=== PATIENT | female | born 1955 | race Caucasian/White ===

== ENCOUNTER → 2018-03-21 15:11 | Outpatient (CLI) | payer OTHER, SELFPAY ==
[2018-03-21 18:45] LABS: Add Manual Diff / Slide Review NO; Basophils Percent Auto 0.5 % (0-2); Eosinophils Percent Auto 1.9 % (2-4); Hemoglobin 12.6 g/dL (12.0-16.0); Lymphocytes Percent Auto 23.6 % (25-40); Mean Corpuscular HGB Conc 33.3 % (30-36); Mean Corpuscular Hemoglobin 29.3 PG (26-34); Mean Corpuscular Volume 88.1 fL (80-100); Monocytes Percent Auto 5.2 % (3-14); Neutrophils Absolute Auto 4300 /uL (3000-5900); Neutrophils Percent Auto 68.8 % (50-75); Platelet Count 345 X10^3/uL (150-400); Red Blood Cell Count 4.32 X10^6/uL (4.0-5.2); Red Cell Distribution Width 13.8 % (11.6-14.8); White Blood Cell Count 6.2 X10^3/uL (4.5-11.0)
[2018-03-21 19:11] LABS: Alanine Aminotransferase 20 IU/L (9-52); Albumin 4.3 g/dL (3.5-5.0); Albumin Globulin Ratio 1.7 (1.0-2.8); Alkaline Phosphatase 59 U/L (38-126); Aspartate Aminotransferase 19 IU/L (14-36); Bilirubin Total 0.3 mg/dL (0.2-1.3); Blood Urea Nitrogen 27 mg/dL (7-17); Calcium 9.5 mg/dL (8.4-10.2); Carbon Dioxide 28 mmol/L (22-32); Chloride 101 mmol/L (98-107); Estimated Glomerular Filt Rate > 60.0 mL/min (>60); Globulin 2.5 g/dL (1.7-4.1); Glucose 98 mg/dL (80-110); HEMOLYSIS < 15 (0-50); Potassium 4.1 mmol/L (3.4-5.1); Sodium 140 mmol/L (137-145); Total Protein 6.8 g/dL (6.3-8.2)
[2018-03-21 19:42] LABS: Thyroid Stimulating Hormone 4.15 uIU/mL (0.47-4.68)
[2018-03-22 10:53] LABS: Bacteria Urine None Seen; RBC Urine None Seen (0-5/HPF); WBC Urine None Seen (0-5/HPF)
[2018-03-22 11:09] LABS: Appearance Urine UA CLEAR; Bilirubin Urine UA NEGATIVE (NEGATIVE); Color Urine UA YELLOW; Glucose Urine UA NEGATIVE (Normal); Ketones Urine UA NEGATIVE (NEGATIVE); Leukocyte Esterase Urine UA NEGATIVE (NEGATIVE); Nitrite Urine UA NEGATIVE (Negative); Occult Blood Urine UA TRACE-INTACT (Negative); Protein Urine UA NEGATIVE (Negative); Urobilinogen Urine UA 0.2 E.U./dL (0.2)
[2018-03-22 11:15] LABS: Culture Indicated Urine Cult Not Indicated; Urine Comments Microscopic Normal
== END ==
PROVIDERS: Visit Provider Physician Assistant
DX: R30.0 Dysuria (principal); R53.83 Other fatigue
CPT/HCPCS: 36415; 80053; 81001; 84443; 85025

== ENCOUNTER → 2018-03-22 10:40 | Outpatient (CLI) | payer OTHER, SELFPAY | PROVIDERS: Visit Provider Physician Assistant | DX: Z53.8 Procedure and treatment not carried out for other reasons (principal) ==

== ENCOUNTER → 2018-05-17 20:39 | Outpatient (CLI) | payer OTHER, SELFPAY ==
--- NOTE | 2018-05-17 20:42 | DI.RAD.S_ITS ---
PROCEDURE: XR WRIST LT MIN 3V INDICATIONS: pain in wrist TECHNIQUE: 4 views of the wrist were acquired. COMPARISON: None. FINDINGS: Bones: No fractures or dislocations. No suspicious bony lesions. Minimal first CMC degenerative narrowing. Scaphoid view: No visualized fracture. Soft tissues: No suspicious soft tissue calcifications. IMPRESSION: Minimal first CMC degenerative narrowing.No visualized acute fracture or dislocation. However, if clinical concern and/or pain persist, short interval imaging followup in 7-10 days is recommended, as occult injury cannot be definitively excluded. Dictated by: Earlene Rizo M.D. on 05/17/2018 at 20:59 Approved by: Earlene Rizo M.D. on 05/17/2018 at 21:00
== END ==
PROVIDERS: Visit Provider Physician Assistant
DX: M25.532 Pain in left wrist (principal)
CPT/HCPCS: 73110

== ENCOUNTER 2019-03-16 20:24 | Emergency (ER) | payer MEDICARE, SELFPAY ==
[2019-03-16 20:43] VITALS: BP 148/75; PULSE 83; RESP 20; TEMP 36.2; O2SAT 96; BMI 34.5
--- NOTE | 2019-03-16 20:49 | DI.US.S_ITS ---
PROCEDURE: US PERIPH VENOUS LOW EXTREM RT INDICATIONS: recent travel, new areas of ecchymosis, pain in leg. TECHNIQUE: Real-time imaging, as well as color and pulse Doppler interrogation, were performed of the lower extremity deep veins from the inguinal ligament to the popliteal fossa. COMPARISON: None. FINDINGS: The common femoral, femoral and popliteal veins are normally compressible, and free of intraluminal thrombus. Color and pulse Doppler demonstrate normal phasic intraluminal flow. There is normal augmentation response to distal compression maneuver. IMPRESSION: Negative right lower extremity duplex ultrasound for DVT. Dictated by: Myke Alexander M.D. on 03/16/2019 at 21:36 Approved by: Myke Alexander M.D. on 03/16/2019 at 21:37
[2019-03-16 22:49] LABS: Add Manual Diff / Slide Review NO; Basophils Absolute Auto 0 /uL (0-100); Basophils Percent Auto 0.7 % (0-2); Eosinophils Absolute Auto 100 /uL (0-450); Hematocrit 34.2 % (36-46); Hemoglobin 11.5 g/dL (12.0-16.0); Lymphocytes Absolute Auto 1400 /uL (1100-4500); Lymphocytes Percent Auto 28.3 % (25-40); Mean Corpuscular HGB Conc 33.6 % (30-36); Mean Corpuscular Hemoglobin 29.6 PG (26-34); Mean Corpuscular Volume 88.1 fL (80-100); Monocytes Absolute Auto 400 /uL (0-900); Neutrophils Absolute Auto 3000 /uL (1500-7000); Platelet Count 256 X10^3/uL (150-400); Red Blood Cell Count 3.89 X10^6/uL (4.0-5.2); Red Cell Distribution Width 14.4 % (11.6-14.8)
[2019-03-16 22:51] VITALS: BP 131/66; PULSE 66; RESP 18; O2SAT 97
[2019-03-16 22:52] LABS: Prothrombin Time 11.6 SECONDS (10.1-12.7)
[2019-03-16 22:55] LABS: PTT Partial Thromboplastin Tim 34 SECONDS (26.4-36.2)
--- NOTE | 2019-03-16 22:55 | ED.EXTPRO ---
HPI - Extremity Problem General Chief complaint: Extremity Problem,Nontraumatic Stated complaint: DVT Rule out of rt leg Time Seen by Provider: 03/16/19 20:43 Source: patient Mode of arrival: Family Vehicle Limitations: no limitations History of Present Illness HPI Narrative: 63-year-old female nonsmoker with history of hypothyroid presents at the request of her primary care provider for evaluation of unexplained bruising to her right anterior thigh. She had apparently taken a picture and shown to her doctor answers dark purple bruising on her right anterior thigh and she denies any obvious injury. She has no ongoing pain nor any redness or swelling. She does not take any blood thinners. She is otherwise well and denies any bleeding gums, blood in her urine or stool. She is not dizzy nor lightheaded but does state she has been fatigued for many months. She denies any medication or dietary change MD Complaint: other Onset (ago): day(s) Location: right Related Data Home Medications Medication Instructions Recorded Confirmed bupropion HCl 150 mg 24 hr tablet, 150 mg PO QAM 03/20/18 03/20/18 extended release diclofenac sodium 75 mg 75 mg PO BID 03/20/18 03/20/18 tablet,delayed release estradiol 1 mg tablet 1 mg PO DAILY 03/20/18 03/20/18 levothyroxine 125 mcg capsule 125 mcg PO DAILY 03/20/18 03/20/18 venlafaxine 75 mg capsule,extended 75 mg PO DAILY 03/20/18 03/20/18 release 24 hr Allergies Allergy/AdvReac Type Severity Reaction Status Date / Time Penicillins Allergy Verified 03/16/19 20:48 Sulfa (Sulfonamide Allergy Verified 03/16/19 20:48 Antibiotics) Review of Systems Constitutional Constitutional: Denies chills, Denies fatigue, Denies fever(s), Denies frequent falls, Denies lethargy and Denies weakness Eyes Eyes: Denies change in vision, Denies eye discharge, Denies irritation and Denies loss of vision ENT Ears, Nose, Mouth, and Throat: Denies change in voice, Denies dizziness, Denies neck pain, Denies sore throat and Denies throat swelling Cardiovascular Cardiovascular: Denies chest pain, Denies irregular heart rhythm, Denies lightheadedness, Denies palpitations, Denies dyspnea, Denies dyspnea on exertion and Denies orthopnea Respiratory Respiratory: Denies cough, Denies dyspnea, Denies dyspnea on exertion and Denies wheezing Gastrointestinal Gastrointestinal: Denies abdominal pain, Denies change in bowel habits, Denies diarrhea, Denies nausea and Denies vomiting Genitourinary Genitourinary: Denies hematuria, Denies flank pain, Denies urinary incontinence and Denies urinary urgency Musculoskeletal Musculoskeletal: Denies back pain, Denies muscle weakness, Denies neck pain, Denies numbness and Denies tingling Integumentary/Breasts Skin/Breast: Denies pruritus, Denies erythema, Denies rash, Reports unusual bruising and Denies wounds Neurologic Neurologic: Denies behavioral changes, Denies confusion, Denies dizziness, Denies frequent falls, Denies loss of vision, Denies numbness, Denies tingling and Denies weakness Psychiatric Psychiatric: Denies anxiety, Denies behavioral changes, Denies confusion, Denies depression, Denies homicidal ideation and Denies suicidal ideation Endocrine Endocrine: Denies fatigue, Denies flushing and Denies palpitations Hematologic/Lymphatic Hematologic/Lymphatic: Denies easy bruising Allergic/Immunologic Allergic/Immunologic: Denies urticaria, Denies throat swelling and Denies wheezing Patient History Social History Smoking Status: Never smoker alcohol intake frequency: 0-2 drinks per day Substance Use Type: does not use Exam Narrative Exam Narrative: GENERAL: [63] year old patient appears stated age. Well-nourished, well-developed patient, in mild distress. HEAD: Atraumatic. Normocephalic. EYES: Pupils equal round and reactive. Extraocular motions intact. No scleral icterus. No injection or drainage. ENT: Nose without bleeding, purulent drainage. Throat without erythema, tonsillar hypertrophy or exudate. Airway patent. NECK: Trachea midline. Non tender CARDIOVASCULAR: Regular rate and rhythm without murmurs, gallops, or rubs. RESPIRATORY: Clear to auscultation. Breath sounds equal bilaterally. No wheezes, rales, or rhonchi. GASTROINTESTINAL: Abdomen soft, non-tender, nondistended. EXTREMITIES: Right anterior thigh with dark purple ecchymosis without tenderness, induration or surrounding erythema or warmth. No edema or joint tenderness. BACK: Nontender without deformity or crepitance. No flank tenderness. NEURO: AOx3. SKIN: No rash or erythema of visible areas Initial Vital Signs Initial Vital Signs: Vital Signs Temperature 97.1 F L 03/16/19 20:43 Pulse Rate 83 03/16/19 20:43 Respiratory Rate 20 03/16/19 20:43 Blood Pressure 148/75 H 03/16/19 20:43 Pulse Oximetry 96 03/16/19 20:43 Course Orders Ordered: ED Orders 03/16/19 22:40 Basic Metabolic Panel Stat Complete Blood Count AUTO DIFF Stat Partial Thromboplastin Time Stat Prothrombin Time INR Stat Vital Signs Vital signs: Vital Signs - 8 hr 03/16/19 22:51 Pulse Rate 66 Respiratory Rate 18 Blood Pressure [Right Arm] 131/66 Pulse Oximetry 97 MDM - Extremity (Nontraumatic) Lab Data Result diagrams: 03/16/19 22:40 03/16/19 22:40 Labs: Lab Results 03/16/19 03/16/19 03/16/19 Range/Units 22:40 22:40 22:40 WBC 5.0 (4.5-11.0) X10^3/uL RBC 3.89 L (4.0-5.2) X10^6/uL Hgb 11.5 L (12.0-16.0) g/dL Hct 34.2 L (36-46) % MCV 88.1 (80-100) fL MCH 29.6 (26-34) PG MCHC 33.6 (30-36) % RDW 14.4 (11.6-14.8) % Plt Count 256 (150-400) X10^3/uL Neut % (Auto) 60.0 (50-75) % Lymph % (Auto) 28.3 (25-40) % [place] % (Auto) 9.0 (3-14) % Eos % (Auto) 2.0 (2-4) % Baso % (Auto) 0.7 (0-2) % Neut # (Auto) 3000 (1285-2864) /uL Lymph # (Auto) 1400 (0069-8333) /uL [place] # (Auto) 400 (0-900) /uL Eos # (Auto) 100 (0-450) /uL Baso # (Auto) 0 (0-100) /uL PT 11.6 (10.1-12.7) SECONDS INR 1.0 (0.9-1.3) APTT (26.4-36.2) SECONDS Sodium 140 (137-145) mmol/L Potassium 3.7 (3.4-5.1) mmol/L Chloride 102 (98-107) mmol/L Carbon Dioxide 30 (22-32) mmol/L BUN 23 H (7-17) mg/dL Creatinine 0.80 (0.52-1.04) mg/dL Estimated GFR > 60.0 (>60) mL/min BUN/Creatinine Ratio 28.8 H (6-22) Glucose 113 H (80-110) mg/dL Calcium 9.1 (8.4-10.2) mg/dL 03/16/19 Range/Units 22:40 WBC (4.5-11.0) X10^3/uL RBC (4.0-5.2) X10^6/uL Hgb (12.0-16.0) g/dL Hct (36-46) % MCV (80-100) fL MCH (26-34) PG MCHC (30-36) % RDW (11.6-14.8) % Plt Count (150-400) X10^3/uL Neut % (Auto) (50-75) % Lymph % (Auto) (25-40) % [place] % (Auto) (3-14) % Eos % (Auto) (2-4) % Baso % (Auto) (0-2) % Neut # (Auto) (3259-3352) /uL Lymph # (Auto) (8403-4247) /uL [place] # (Auto) (0-900) /uL Eos # (Auto) (0-450) /uL Baso # (Auto) (0-100) /uL PT (10.1-12.7) SECONDS INR (0.9-1.3) APTT 34 (26.4-36.2) SECONDS Sodium (137-145) mmol/L Potassium (3.4-5.1) mmol/L Chloride (98-107) mmol/L Carbon Dioxide (22-32) mmol/L BUN (7-17) mg/dL Creatinine (0.52-1.04) mg/dL Estimated GFR (>60) mL/min BUN/Creatinine Ratio (6-22) Glucose (80-110) mg/dL Calcium (8.4-10.2) mg/dL MDM Narrative Medical decision making narrative: Chart Viewer Diagnostics DATE TYPE STATUS AUTHOR Hx 03/16/19 20:49 Myke Alexander 05/17/18 20:42 Earlene Rizo [place] 63, [id number] DEP ER, [facility] 160.02cm 88.451kg BMI: 34.5kg/m? Extremity Problem,Nontraumatic Search Chart No Data to Display ONSET 03/16/19 22:51 Gurpreet Blevins 63 F 1955 [place] [id number] Ultrasound Report Signed Patient: Varun Blevins#: [id number] : 1955cct:[id number] Age/Sex: 63 / FDate of Service: 03/16/19 Loc: ED Accession Number: [id number] Procedure: periph venous low extrem rt Ordering Provider: Aubrey Lopez D.O. PROCEDURE: US PERIPH VENOUS LOW EXTREM RT INDICATIONS: recent travel, new areas of ecchymosis, pain in leg. TECHNIQUE: Real-time imaging, as well as color and pulse Doppler interrogation, were performed of the lower extremity deep veins from the inguinal ligament to the popliteal fossa. COMPARISON: None. FINDINGS: The common femoral, femoral and popliteal veins are normally compressible, and free of intraluminal thrombus. Color and pulse Doppler demonstrate normal phasic intraluminal flow. There is normal augmentation response to distal compression maneuver. IMPRESSION: Negative right lower extremity duplex ultrasound for DVT. Dictated by: Myke Alexander M.D. on 03/16/2019 at 21:36 Approved by: Myke Alexander M.D. on 03/16/2019 at 21:37 63-year-old female presents at the request of her physician for evaluation of a possible DVT of her right lower extremity. She has painless ecchymosis to her right anterior thigh in the absence of any injury. She has no history of the same. Additionally she claims a he she has been fatigued for few months. Labs were drawn to be sure she is not anemic or demonstrate other abnormalities. Her exam, imaging and labs are very reassuring. She is given return precautions which she understands as evidenced by her ability to recite them back. She has had questions answered to her apparent satisfaction. Discharge Plan Departure Patient Disposition: Home Clinical Impression: Abnormal bruising Discharge Date/Time: 03/16/19 23:15 Instructions: Easy Bruising (Alternative Therapy) Activity Restrictions/Additional Instructions: *You have been diagnosed with [abnormal bruising, unremarkable labs and ultrasound] *What to do: *Take medications as directed *Follow up with your primary care provider in 2-3 days, call for an appointment. Let them know you were seen in the Emergency Department and that we ask that you be seen in follow up *Return to ER if you should have any new, worsening or concerning symptoms Prescriptions: No Action venlafaxine 75 mg capsule,extended release 24hr 75 mg PO DAILY RF: 0 estradiol 1 mg tablet 1 mg PO DAILY RF: 0 diclofenac sodium 75 mg tablet,delayed release (DR/EC) 75 mg PO BID RF: 0 bupropion HCl 150 mg tablet extended release 24 hr 150 mg PO QAM RF: 0 levothyroxine 125 mcg capsule 125 mcg PO DAILY RF: 0 Referrals: [facility] [Outside]
[2019-03-16 23:02] LABS: BUN Creatinine Ratio 28.8 (6-22); Blood Urea Nitrogen 23 mg/dL (7-17); Calcium 9.1 mg/dL (8.4-10.2); Carbon Dioxide 30 mmol/L (22-32); Chloride 102 mmol/L (98-107); Estimated Glomerular Filt Rate > 60.0 mL/min (>60); Glucose 113 mg/dL (80-110); HEMOLYSIS < 15 (0-50); Potassium 3.7 mmol/L (3.4-5.1); Sodium 140 mmol/L (137-145)
== END 2019-03-16 23:15 | disposition home or self-care (01) ==
PROVIDERS: Emergency Provider Emergency Medicine
DX: R23.8 Other skin changes (principal); S70.11XA Contusion of right thigh, initial encounter
CPT/HCPCS: 36415; 80048; 85025; 85610; 85730; 93971; 99282; 99284

== ENCOUNTER → 2020-02-02 16:36 | Outpatient (CLI) | payer MEDICARE, SELFPAY ==
[2020-02-02 18:12] LABS: Hematocrit 37.3 % (36-46); Hemoglobin 12.5 g/dL (12.0-16.0); Mean Corpuscular HGB Conc 33.6 % (30-36); Mean Corpuscular Hemoglobin 29.3 PG (26-34); Mean Corpuscular Volume 87.4 fL (80-100); Platelet Count 295 X10^3/uL (150-400); Red Blood Cell Count 4.27 X10^6/uL (4.0-5.2); Red Cell Distribution Width 13.8 % (11.6-14.8); White Blood Cell Count 5.8 X10^3/uL (4.5-11.0)
[2020-02-02 18:14] LABS: Appearance Urine UA SL CLOUDY; Bilirubin Urine UA NEGATIVE (NEGATIVE); Color Urine UA YELLOW; Glucose Urine UA NEGATIVE (Negative); Ketones Urine UA TRACE (NEGATIVE); Leukocyte Esterase Urine UA TRACE (NEGATIVE); Nitrite Urine UA NEGATIVE (Negative); Occult Blood Urine UA TRACE-LYSED (Negative); Protein Urine UA 1+ (Negative); Specific Gravity Urine UA >=1.030 (1.000-1.035); Urobilinogen Urine UA 0.2 E.U./dL (0.2)
[2020-02-02 18:21] LABS: Amorphous Sediment Urine 1+; Bacteria Urine Few (2-10); Culture Indicated Urine Specimen Cultured; Mucus Urine 2+ (Negative); RBC Urine 1-5/HPF (0-5/HPF); Squamous Epithelial Cell Urine 5-10 /HPF (0-5/HPF); WBC Urine 10-30/HPF (0-5/HPF)
[2020-02-02 18:28] LABS: Alanine Aminotransferase 26 IU/L (<35); Albumin 4.2 g/dL (3.5-5.0); Albumin Globulin Ratio 1.6 (1.0-2.8); Alkaline Phosphatase 89 U/L (38-126); Aspartate Aminotransferase 30 IU/L (14-36); BUN Creatinine Ratio 30.6 (6-22); Bilirubin Total 0.4 mg/dL (0.2-1.3); Blood Urea Nitrogen 26 mg/dL (7-17); C-Reactive Protein Quant 0.9 mg/dL (<1.0); Calcium 9.2 mg/dL (8.4-10.2); Carbon Dioxide 29 mmol/L (22-32); Chloride 101 mmol/L (98-107); Cholesterol 227 mg/dL (140-199); Estimated Glomerular Filt Rate > 60.0 mL/min (>60); Globulin 2.6 g/dL (1.7-4.1); Glucose 94 mg/dL (80-110); HDL Cholesterol 84 mg/dL (40-60); HEMOLYSIS < 15 (0-50); LDL Cholesterol Calculated 106 mg/dL (<100); Magnesium 2.3 mg/dL (1.6-2.3); Potassium 4.5 mmol/L (3.4-5.1); Sodium 137 mmol/L (137-145); Total Protein 6.8 g/dL (6.3-8.2); Triglycerides 187 mg/dL (35-150)
[2020-02-02 18:39] LABS: Erythrocyte Sedimentation Rate 14 MM/HR (0-20)
[2020-02-02 18:42] LABS: Vitamin D 25 Hydroxy (D3) 42.2 ng/mL (30.0-100.0)
[2020-02-02 18:43] LABS: Neutrophils Absolute Manual 3828 /uL (3000-5900); Total Cells Counted 100
[2020-02-02 18:45] LABS: Free T4, Direct Thyroxine 1.96 ng/dL (0.78-2.19)
[2020-02-02 18:46] LABS: RBC Morphology Norm
[2020-02-02 18:59] LABS: Thyroid Stimulating Hormone 0.021 uIU/mL (0.47-4.68)
[2020-02-03 07:39] LABS: Triiodothyronine T3 Total 65 ng/dL (71-180)
[2020-02-04 11:36] LABS: Intrinsic Factor Blocking Aby 1.1 AU/mL (0.0-1.1)
[2020-02-04 14:08] LABS: Immunoglobulin A, Serum 140 mg/dL (87-352); Immunoglobulin G,Serum 607 mg/dL (586-1602); Immunoglobulin M, Serum 50 mg/dL (26-217)
[2020-02-04 15:20] LABS: Albumin 3.8 g/dL (2.9-4.4); Alpha-1-Globulin 0.2 g/dL (0.0-0.4); Alpha-2-Globulin 0.8 g/dL (0.4-1.0); Gamma Globulin 0.6 g/dL (0.4-1.8); Globulin Total 2.4 g/dL (2.2-3.9); Protein, Total 6.2 g/dL (6.0-8.5)
== END ==
PROVIDERS: PCP Internal Medicine; Referring Provider Internal Medicine; Visit Provider Internal Medicine
DX: R25.1 Tremor, unspecified (principal); E53.8 Deficiency of other specified B group vitamins; K52.839 Microscopic colitis, unspecified
CPT/HCPCS: 36415; 80053; 80061; 81001; 82306; 82784; 83735; 84155; 84165; 84439; 84443; 84480; 85025; 85651; 86140; 86334; 86340; 87086

== ENCOUNTER → 2020-02-06 18:56 | Outpatient (ROUT) | payer MEDICARE, SELFPAY ==
[2020-02-06 20:05] LABS: Vitamin B12 373 pg/mL (239-931)
== END ==
PROVIDERS: PCP Internal Medicine; Visit Provider Internal Medicine
DX: E53.8 Deficiency of other specified B group vitamins (principal)
CPT/HCPCS: 82607

== ENCOUNTER → 2020-03-23 13:16 | Outpatient (CLI) | payer MEDICARE, SELFPAY ==
--- NOTE | 2020-03-23 | DI.MRI.S_ITS ---
PROCEDURE: MR CERVICAL SPINE WO/W CON INDICATIONS: TREMORS, NAUSEA TECHNIQUE: Noncontrast sagittal T1 spin echo and T2 fast spin echo, sagittal STIR, foraminal oblique sagittal T2 fast spin echo, axial gradient echo or T2 fast spin echo through the cervical spine. After the administration of contrast, axial and sagittal T1 spin echo with fat saturation through the cervical spine. COMPARISON: None. FINDINGS: Image quality: Excellent. Alignment and curvature: Loss of normal cervical lordosis. Moderate kyphosis at C4-C6. Marrow: Marrow is normal in overall signal, without suspicious enhancement. Moderate reactive signal within the endplates adjacent to the C4-C5, C5-C6, and C6-C7 intervertebral discs. Spinal cord: Visualized spinal cord has normal size and signal. No cerebellar tonsillar herniation. No abnormal intramedullary enhancement. Paraspinous soft tissues: No paravertebral masses or suspicious enhancement. C2-3: Mild disc height loss and desiccation. Mild diffuse disc bulge. Mild facet and uncovertebral hypertrophy bilaterally. Mild canal stenosis. Moderate bilateral foraminal stenosis. C3-4: Congenital canal stenosis. Mild disc height loss and desiccation. Mild diffuse disc bulge. Mild facet and uncovertebral hypertrophy bilaterally. Moderate to severe canal stenosis. Mild cord flattening. Moderate bilateral foraminal stenosis. C4-5: Congenital canal stenosis. Moderate disc height loss and desiccation. Moderate diffuse disc bulge with superimposed broad-based left paracentral and posterolateral protrusion. Moderate facet and uncovertebral hypertrophy bilaterally. Severe canal stenosis. Moderate cord flattening. Severe bilateral foraminal stenosis with bilateral C5 nerve root compression. C5-6: Moderate disc height loss and desiccation. Moderate diffuse disc bulge with superimposed left paracentral protrusion. Congenital canal stenosis. Mild bilateral facet and uncovertebral hypertrophy. Severe canal stenosis. Moderate cord flattening. Moderate right and severe left foraminal stenosis. Left C6 nerve root compression. C6-7: Congenital canal stenosis. Moderate disc height loss and desiccation. Mild diffuse disc bulge with superimposed right posterolateral protrusion. Mild facet and uncovertebral hypertrophy bilaterally. Moderate to severe canal stenosis. Mild cord flattening. Mild bilateral foraminal stenosis. C7-T1: Moderate disc height loss and desiccation. Mild diffuse disc bulge. Mild facet and uncovertebral hypertrophy bilaterally. Mild canal stenosis. Mild right and moderate left foraminal stenosis. IMPRESSION: 1. Diffuse congenital canal stenosis with superimposed disc and facet disease, as well as uncovertebral hypertrophy. 2. Multilevel canal stenoses, worst at C3-C4, C4-C5, C5-C6, and C6-C7, where there is cord flattening present. 3. Multilevel foraminal stenoses, worst at C4-C5 and C5-C6 where there is associated intraforaminal nerve root compression. Recommend correlation with clinical symptoms to ascertain relevance of these findings. 4. No evidence of neoplasm nor inflammation. Dictated by: Arcadio Hugo M.D. on 03/23/2020 at 14:02 Approved by: Arcadio Hugo M.D. on 03/23/2020 at 14:07
--- NOTE | 2020-03-23 | DI.MRI.S_ITS ---
PROCEDURE: MR HEAD/BRAIN WO/W CON INDICATIONS: TREMOR, NAUSEA, MIGRAINE TECHNIQUE: Noncontrast axial T1 spin echo, axial T2 fast spin echo, sagittal and axial FLAIR, coronal T2 fast spin echo, axial gradient echo, axial diffusion and ADC through the brain. After the administration of contrast, axial and coronal T1 spin echo with fat saturation through the brain. COMPARISON: None. FINDINGS: Image quality: Excellent. CSF spaces: Basal cisterns are patent. No extra-axial fluid collections. Ventricles are normal in size and shape. Brain: No midline shift. No intracranial bleeds or masses. No abnormal intracranial enhancement. There is mild cerebral volume loss for age. There is minimal age-appropriate periventricular white matter chronic small vessel ischemic change. The brainstem appears normal. Diffusion-weighted images demonstrate no acute ischemic insults. No chronic ischemic insults. Normal intravascular flow voids are present. Skull and face: Calvarial marrow is normal in signal. Orbits appear normal. Sinuses: Small amount of right mastoid fluid. Sinuses and mastoids otherwise appear clear. IMPRESSION: 1. Mild volume loss. Minimal small vessel ischemic disease. 2. No acute process. No recent infarct. 3. No intracranial mass lesion. 4. Small amount of right mastoid fluid. Dictated by: Arcadio Hugo M.D. on 03/23/2020 at 14:01 Approved by: Arcadio Hugo M.D. on 03/23/2020 at 14:02
== END ==
PROVIDERS: PCP Internal Medicine; Referring Provider Internal Medicine; Visit Provider Orthopaedic Surgery
DX: R25.1 Tremor, unspecified (principal); R11.0 Nausea; G43.909 Migraine, unspecified, not intractable, without status migrainosus
CPT/HCPCS: 70553; 72156

== ENCOUNTER → 2020-03-25 07:40 | Outpatient (CLI) | payer MEDICARE, SELFPAY ==
--- NOTE | 2020-03-25 | DI.NM.S_ITS ---
PROCEDURE: NM GASTRIC EMPTYING STUDY RADIOPHARMACEUTICAL: 1.0 mCi Tc-99m sulfur colloid in an egg sandwich. INDICATIONS: TREMOR,NAUSEA,MIGRAINE TECHNIQUE: A Tc-99m labeled sulfur colloid labeled egg sandwich or oatmeal was served to the patient. Anterior and posterior planar images of the abdomen were obtained at 0 minutes and 30 minutes, then at hourly intervals up to 4 hours. The patient was upright and ambulating during the interval. COMPARISON: None. FINDINGS: The stomach has normal size, morphology, and position. There is normal emptying of solid gastric contents from the stomach by visual inspection. No gastroesophageal reflux is visualized. The percentage of tracer retained at specific time points are as follows: Time point Percent gastric retention Normal range 30 minutes 75% 70% or more 1 hour 45% 30% to 90% 2 hours 10% 60% or less 3 hours - 30% or less 4 hours - 10% or less IMPRESSION: Normal gastric emptying study. Dictated by: Gala Mac M.D. on 03/25/2020 at 11:22 Approved by: Gala Mac M.D. on 03/25/2020 at 11:23
== END ==
PROVIDERS: PCP Internal Medicine; Referring Provider Internal Medicine; Visit Provider Internal Medicine
DX: R11.0 Nausea (principal); R25.1 Tremor, unspecified; G43.909 Migraine, unspecified, not intractable, without status migrainosus
CPT/HCPCS: 78264; A9541

== ENCOUNTER 2020-06-09 17:02 | Observation (INO) | payer MEDICARE, SELFPAY ==
[2020-06-09] VITALS (12 sets, daily range): BP systolic 117–160; BP diastolic 56–84; PULSE 61–82; RESP 17–34; TEMP 36.2–36.8; O2SAT 79–99; BMI 32.4
--- NOTE | 2020-06-09 17:18 | DI.RAD.S_ITS ---
PROCEDURE: XR CHEST 1V INDICATIONS: chest pain TECHNIQUE: One view of the chest was acquired. COMPARISON: None. FINDINGS: Surgical changes and devices: None. Lungs and pleura: Possible nodule or artifact projecting to the area of the anterior left 5th rib. Lungs are clear. No pleural effusions or pneumothorax. Mediastinum: Mediastinal contours appear normal. Heart size is normal. Bones and chest wall: No suspicious bony lesions. Overlying soft tissues appear unremarkable. IMPRESSION: 1. No acute cardiopulmonary disease. 2. Possible lung nodule versus an artifact in the left midlung around the area of the anterior left 5th rib. A nonurgent follow-up chest CT is suggested. Dictated by: Gala Mac M.D. on 06/09/2020 at 17:46 Approved by: Gala Mac M.D. on 06/09/2020 at 17:48
[2020-06-09 17:47] LABS: Add Manual Diff / Slide Review NO; Basophils Absolute Auto 100 /uL (0-100); Eosinophils Absolute Auto 100 /uL (0-450); Eosinophils Percent Auto 1.2 % (2-4); Hematocrit 38.4 % (36-46); Hemoglobin 12.6 g/dL (12.0-16.0); Lymphocytes Absolute Auto 2700 /uL (1100-4500); Lymphocytes Percent Auto 24.2 % (25-40); Mean Corpuscular HGB Conc 32.7 % (30-36); Mean Corpuscular Hemoglobin 28.8 PG (26-34); Mean Corpuscular Volume 88.1 fL (80-100); Monocytes Absolute Auto 600 /uL (0-900); Monocytes Percent Auto 5.6 % (3-14); Neutrophils Absolute Auto 7600 /uL (1500-7000); Platelet Count 625 X10^3/uL (150-400); Red Blood Cell Count 4.36 X10^6/uL (4.0-5.2); Red Cell Distribution Width 13.8 % (11.6-14.8); White Blood Cell Count 11.1 X10^3/uL (4.5-11.0)
[2020-06-09 17:49] LABS: INR 1.1 (0.9-1.3); Prothrombin Time 12.8 SECONDS (10.1-12.7)
[2020-06-09 17:52] LABS: PTT Partial Thromboplastin Tim 29 SECONDS (26.4-36.2)
[2020-06-09 17:55] LABS: Alanine Aminotransferase 20 IU/L (<35); Albumin Globulin Ratio 1.3 (1.0-2.8); Alkaline Phosphatase 177 U/L (38-126); Aspartate Aminotransferase 26 IU/L (14-36); BUN Creatinine Ratio 29.3 (6-22); Bilirubin Total 0.4 mg/dL (0.2-1.3); Blood Urea Nitrogen 24 mg/dL (7-17); Calcium 9.3 mg/dL (8.4-10.2); Carbon Dioxide 28 mmol/L (22-32); Chloride 103 mmol/L (98-107); Creatine Kinase 28 U/L (30-135); Estimated Glomerular Filt Rate > 60.0 mL/min (>60); Glucose 101 mg/dL (80-110); HEMOLYSIS 48 (0-50); Lipase 335 U/L (23-300); Potassium 4.5 mmol/L (3.4-5.1); Sodium 135 mmol/L (137-145)
[2020-06-09 18:07] LABS: Troponin I < 0.012 ng/mL (0.01-0.034)
[2020-06-09 18:21] LABS: D Dimer 2755 ng/mL (<230)
--- NOTE | 2020-06-09 18:52 | DI.CT.S_ITS ---
PROCEDURE: CT ANGIO CHEST PE PROTOCOL INDICATIONS: Dyspnea TECHNIQUE: After the administration of intravenous contrast, 2 mm thick sections acquired from the pulmonary apices to the posterior costophrenic angles. 3-dimensional maximum intensity projection (MIP) coronal and sagittal reformats were then acquired through the thorax. For radiation dose reduction, the following was used: automated exposure control, adjustment of mA and/or kV according to patient size. COMPARISON: [facility], , US PERIPH VENOUS LOW EXTREM RT, 03/16/2019, 21:19. [facility], CR, XR CHEST 1V, 06/09/2020, 17:37. FINDINGS: Image quality: Sub optimal opacification of central pulmonary arteries. Pulmonary arteries: Pulmonary arteries are suboptimally opacified. Pulmonary arteries are normal in size. Lungs and pleura: There are peripheral nodular opacities in lingula. No pleural effusions or pneumothorax. Central and peripheral airways are patent. Mediastinum: Heart size is normal, without pericardial effusion. No mediastinal or hilar adenopathy. Thoracic aorta is normal in caliber and enhancement. Esophagus is normal in caliber. Small hiatal hernia. Bones and chest wall: No suspicious bony lesions. Ribs and thoracic spine appear intact throughout. Thyroid gland is atrophic. No axillary or supraclavicular adenopathy. Abdomen: Visualized upper abdominal solid organs appear normal in the early arterial phase of enhancement. Gallbladder is surgically absent. IMPRESSION: 1. Suboptimal opacification of central pulmonary arteries. Cannot rule out acute PE. Recommend repeat examination when clinically feasible if clinical suspicion is high. 2. Peripheral nodular opacities in lingula suspicious for pneumonia superimposed on atelectasis. Recommend follow up CT to resolution. 3. Atrophic thyroid gland. Please correlate with thyroid function tests. Dictated by: Gala Mac M.D. on 06/09/2020 at 19:56 Approved by: Gala Mac M.D. on 06/09/2020 at 20:03
--- NOTE | 2020-06-09 19:00 | ED_ITS ---
HPI - Chest Pain General Chief Complaint: Chest Pain Stated Complaint: having spells of nausea, rt sided chest pain Time Seen by Provider: 06/09/20 17:26 Source: patient and family Mode of arrival: Ambulatory History of Present Illness HPI narrative: Patient here for non reproducible right-sided chest discomfort. Has had nausea. Feels like pressure. Radiates to the right neck and right face. Patient status post anterior cervical diskectomy and fusion with lumbar laminectomy and foraminectomy 3 weeks ago at [facility]. Since then has had nightly chills and shakes. No fevers. No cough cold congestion. No vomiting or diarrhea. Surgical wounds have been doing well. Has not seen her surgeon for follow-up. No prior history of heart disease. No pulmonary embolism or DVT. MD complaint: chest pain Related Data Home Medications Medication Instructions Recorded Confirmed levothyroxine 125 mcg capsule 125 mcg PO DAILY 03/20/18 06/09/20 venlafaxine 75 mg capsule,extended 75 mg PO DAILY 03/20/18 06/09/20 release 24 hr magnesium citrate 300 mg PO BID 06/09/20 06/09/20 oxycodone 5 mg PO Q2HR 06/09/20 06/09/20 Allergies Allergy/AdvReac Type Severity Reaction Status Date / Time Penicillins Allergy Verified 03/16/19 20:48 Sulfa (Sulfonamide Allergy Verified 03/16/19 20:48 Antibiotics) Review of Systems Review of Systems Narrative: GENERAL: Complains chills, denied fatigue, malaise, fever, complaint sweats. HEENT: Denies sinus pain, ear pain, sore throat RESPIRATORY: Denies dyspnea, cough CARDIOVASCULAR: Complaint chest pain, denies palpitations GASTROINTESTINAL: Denies nausea, vomiting, abdominal pain : Denies dysuria, frequency, hematuria MUSCULOSKELETAL: denies muscle or bony pain SKIN: Denies rash, skin lesions NEUROLOGIC: Denies weakness, numbness ROS Unobtainable: All systems reviewed & are unremarkable except as noted in HPI and below Patient History Social History household members: spouse Smoking Status: Never smoker Smoking Status: Never smoker alcohol intake frequency: 0-2 drinks per day Substance Use Type: does not use Exam Narrative Exam Narrative: GENERAL: in no distress, not toxic not dyspneic HEAD: Normocephalic. EYES: Pupils equal round ENT: Mucous membranes moist. NECK: Trachea midline. CARDIOVASCULAR: Regular rate and rhythm without murmurs RESPIRATORY: Clear to auscultation. Breath sounds equal bilaterally. No wheezes, rales, or rhonchi. GASTROINTESTINAL: Abdomen soft, non-tender EXTREMITIES: No gross deformities. BACK: No flank tenderness. NEURO: AOx4. SKIN: Warm and dry PSYCH: Not anxious, is cooperative Initial Vital Signs Initial Vital Signs: Vital Signs Temperature 97.2 F L 06/09/20 17:14 Pulse Rate 76 06/09/20 17:14 Respiratory Rate 28 H 06/09/20 17:14 Blood Pressure 123/84 06/09/20 17:14 Pulse Oximetry 98 06/09/20 17:14 Course Course Course Narrative: Equivocal CT scan cannot rule out PE. Reviewed with patient and family. They agree for admission. Decision to Admit Date: 06/09/20 Decision to Admit time: 20:45 Orders Ordered: ED Orders 06/09/20 17:18 XR chest 1V Stat EKG-12 Lead Stat 06/09/20 17:23 Complete Blood Count AUTO DIFF Stat Comprehensive Metabolic Panel Stat D Dimer Stat Lipase Stat Partial Thromboplastin Time Stat Prothrombin Time INR Stat Troponin & CK Cardiac Panel Stat 06/09/20 18:52 CT angio chest PE protocol Stat Acetaminophen (Acetaminophen 325 Mg Tablet) 650 mg PO Q6HR PRN PRN Reason: Fever/Mild Pain (1-3) Al Hydrox/Mg Hydrox/Simethicone (Mag Hydrox/Alum/Simeth 30 Ml Udc) 30 ml PO Q6HR PRN PRN Reason: Dyspepsia Bisacodyl (Bisacodyl 10 Mg Supp) 10 mg IN DAILY PRN PRN Reason: Constipation Calcium Carbonate (Calcium Carbonate 500 Mg Tab) 1,000 mg PO Q4HR PRN PRN Reason: Dyspepsia Docusate Sodium (Docusate 100 Mg Capsule) 100 mg PO BID [facility] Enoxaparin Sodium (Enoxaparin 80 Mg/0.8 Ml Syringe) 80 mg 1 mg/kg (80 mg) SUBCUT BID BRIE Famotidine (Famotidine 20 Mg Tablet) 20 mg PO BID BRIE Sodium Chloride (Normal Saline 0.9%) 1,000 mls @ 75 mls/hr IV CONT BRIE Last Admin: 06/09/20 21:30 Dose: 75 mls/hr Documented by: BECKY Magnesium Hydroxide (Magnesium Hydroxide 30 Ml Udc) 30 ml PO DAILY PRN PRN Reason: Constipation Naloxone HCl (Naloxone 0.4 Mg/Ml Vial) 0.2 mg IV Q2MIN PRN PRN Reason: Opiate Reversal Non-Formulary Medication (Levothyroxine) 125 mcg PO DAILY BRIE Non-Formulary Medication (Magnesium Citrate) 300 mg PO BID BRIE Ondansetron HCl (Ondansetron 4 Mg/2 Ml Inj) 4 mg IV Q8HR PRN PRN Reason: Nausea And Vomiting Oxycodone HCl (Oxycodone Ir 5 Mg Tablet) 5 mg PO Q6HR PRN PRN Reason: Pain, Moderate (4-6) Oxycodone HCl (Oxycodone Ir 10 Mg Tablet) 10 mg PO Q6HR PRN PRN Reason: Pain, Severe (7-10) Venlafaxine HCl (Venlafaxine Er 75 Mg Cap) 75 mg PO DAILY BRIE Discontinued Medications Enoxaparin Sodium (Enoxaparin 80 Mg/0.8 Ml Syringe) 80 mg 1 mg/kg (80 mg) SUBCUT NOW ONE Stop: 06/09/20 20:48 Last Admin: 06/09/20 20:53 Dose: 80 mg Documented by: MADELEINE Sodium Chloride (Normal Saline 0.9%) 500 mls @ 1,000 mls/hr IV BOLUS ONE Stop: 06/09/20 19:21 Last Infusion: 06/09/20 20:16 Dose: 0 mls/hr Documented by: Admin: 06/09/20 19:40 Dose: 1,000 mls/hr Documented by: MADELEINE Reevaluation(s) Reevaluation #1: Reviewed results with patient and . Agree for admission. Understand will need V/Q scan and further testing to rule out PE. Time: 20:45 Consultations Consultation #1: Spoke with patient's neurosurgeon dr pham, patient is surgically cleared for any stress test or a V/Q scan and as well as anticoagulation. May give Lovenox Time: 20:35 Consultation #2: Spoke with Adolfo, hospitalist, will admit, start Lovenox Time: 20:46 Vital Signs Vital signs: Vital Signs - 8 hr 06/09/20 17:14 06/09/20 18:21 06/09/20 18:30 Temperature 97.2 F L Pulse Rate 76 70 67 Respiratory Rate 28 H 34 H 30 H Blood Pressure 123/84 117/56 L Pulse Oximetry 98 98 98 06/09/20 19:00 06/09/20 19:30 06/09/20 19:43 Temperature Pulse Rate 69 69 66 Respiratory Rate Blood Pressure 160/67 H Pulse Oximetry 79 L 95 06/09/20 20:00 06/09/20 20:30 Temperature Pulse Rate 61 63 Respiratory Rate 24 24 Blood Pressure 132/64 127/61 Pulse Oximetry 97 99 MDM - Chest Pain Differential Diagnosis Differential diagnosis: Likely stable angina, unstable angina pectoris, chest pain and other (Pulmonary embolism) Lab Data Attestation: I reviewed the patient's lab results. Result diagrams: 06/09/20 17:23 06/09/20 17:23 Labs: Lab Results 06/09/20 06/09/20 06/09/20 Range/Units 17:23 17:23 17:23 WBC 11.1 H (4.5-11.0) X10^3/uL RBC 4.36 (4.0-5.2) X10^6/uL Hgb 12.6 (12.0-16.0) g/dL Hct 38.4 (36-46) % MCV 88.1 (80-100) fL MCH 28.8 (26-34) PG MCHC 32.7 (30-36) % RDW 13.8 (11.6-14.8) % Plt Count 625 H (150-400) X10^3/uL Neut % (Auto) 68.0 (50-75) % Lymph % (Auto) 24.2 L (25-40) % Berks % (Auto) 5.6 (3-14) % Eos % (Auto) 1.2 L (2-4) % Baso % (Auto) 1.0 (0-2) % Neut # (Auto) 7600 H (7471-1877) /uL Lymph # (Auto) 2700 (3124-2155) /uL Berks # (Auto) 600 (0-900) /uL Eos # (Auto) 100 (0-450) /uL Baso # (Auto) 100 (0-100) /uL PT 12.8 H (10.1-12.7) SECONDS INR 1.1 (0.9-1.3) APTT 29 (26.4-36.2) SECONDS D-Dimer (<230) ng/mL Sodium 135 L (137-145) mmol/L Potassium 4.5 (3.4-5.1) mmol/L Chloride 103 (98-107) mmol/L Carbon Dioxide 28 (22-32) mmol/L BUN 24 H (7-17) mg/dL Creatinine 0.82 (0.52-1.04) mg/dL Estimated GFR > 60.0 (>60) mL/min BUN/Creatinine Ratio 29.3 H (6-22) Glucose 101 (80-110) mg/dL Calcium 9.3 (8.4-10.2) mg/dL Total Bilirubin 0.4 (0.2-1.3) mg/dL AST 26 (14-36) IU/L ALT 20 (<35) IU/L Alkaline Phosphatase 177 H (38-126) U/L Total Creatine Kinase 28 L (30-135) U/L CK-MB (CK-2) TNP CK-MB (CK-2) Rel Index TNP Troponin I < 0.012 (0.01-0.034) ng/mL Total Protein 7.0 (6.3-8.2) g/dL Albumin 4.0 (3.5-5.0) g/dL Globulin 3.0 (1.7-4.1) g/dL Albumin/Globulin Ratio 1.3 (1.0-2.8) Lipase 335 H (23-300) U/L 06/09/20 Range/Units 17:23 WBC (4.5-11.0) X10^3/uL RBC (4.0-5.2) X10^6/uL Hgb (12.0-16.0) g/dL Hct (36-46) % MCV (80-100) fL MCH (26-34) PG MCHC (30-36) % RDW (11.6-14.8) % Plt Count (150-400) X10^3/uL Neut % (Auto) (50-75) % Lymph % (Auto) (25-40) % Berks % (Auto) (3-14) % Eos % (Auto) (2-4) % Baso % (Auto) (0-2) % Neut # (Auto) (0056-9496) /uL Lymph # (Auto) (6968-6178) /uL Berks # (Auto) (0-900) /uL Eos # (Auto) (0-450) /uL Baso # (Auto) (0-100) /uL PT (10.1-12.7) SECONDS INR (0.9-1.3) APTT (26.4-36.2) SECONDS D-Dimer 2755 H (<230) ng/mL Sodium (137-145) mmol/L Potassium (3.4-5.1) mmol/L Chloride (98-107) mmol/L Carbon Dioxide (22-32) mmol/L BUN (7-17) mg/dL Creatinine (0.52-1.04) mg/dL Estimated GFR (>60) mL/min BUN/Creatinine Ratio (6-22) Glucose (80-110) mg/dL Calcium (8.4-10.2) mg/dL Total Bilirubin (0.2-1.3) mg/dL AST (14-36) IU/L ALT (<35) IU/L Alkaline Phosphatase (38-126) U/L Total Creatine Kinase (30-135) U/L CK-MB (CK-2) CK-MB (CK-2) Rel Index Troponin I (0.01-0.034) ng/mL Total Protein (6.3-8.2) g/dL Albumin (3.5-5.0) g/dL Globulin (1.7-4.1) g/dL Albumin/Globulin Ratio (1.0-2.8) Lipase (23-300) U/L Imaging Data Chest x-ray: Radiologist's Impression: [address] [id number] ReportSigned Patient: Varun Blevins#: [id number]: 3Acct:[id number]/Sex: 65 / FDate of Service: 06/09/20Loc: EDAccession Number: [id number] Procedure: XR chest 1V Ordering Provider: Elizabet Jose D.O. PROCEDURE: XR CHEST 1V INDICATIONS: chest pain TECHNIQUE: One view of the chest was acquired. COMPARISON: None. FINDINGS: Surgical changes and devices: None. Lungs and pleura: Possible nodule or artifact projecting to the area of the anterior left 5th rib. Lungs are clear. No pleural effusions or pneumothorax. Mediastinum: Mediastinal contours appear normal. Heart size is normal. Bones and chest wall: No suspicious bony lesions. Overlying soft tissues appear unremarkable. IMPRESSION: 1. No acute cardiopulmonary disease. 2. Possible lung nodule versus an artifact in the left midlung around the area of the anterior left 5th rib. A nonurgent follow-up chest CT is suggested. Dictated by: Gala Mac M.D. on 06/09/2020 at 17:46 Approved by: Gala Mac M.D. on 06/09/2020 at 17:48 CT scan - chest: Radiologist's Impression: [address] [id number] Scan ReportSigned Patient: Varun Blevins#: [id number]: 1955cct:[id number]/Sex: 65 / FDate of Service: 06/09/20Loc: EDAccession Number: [id number] Procedure: CT angio chest PE protocol Ordering Provider: Herrera Stewart MD PROCEDURE: CT ANGIO CHEST PE PROTOCOL INDICATIONS: Dyspnea TECHNIQUE: After the administration of intravenous contrast, 2 mm thick sections acquired from the pulmonary apices to the posterior costophrenic angles. 3-dimensional maximum intensity projection (MIP) coronal and sagittal reformats were then acquired through the thorax. For radiation dose reduction, the following was used: automated exposure control, adjustment of mA and/or kV according to patient size. COMPARISON: [facility], US, US PERIPH VENOUS LOW EXTREM RT, 03/16/2019, 21:19. [facility], CR, XR CHEST 1V, 06/09/2020, 17:37. FINDINGS: Image quality: Sub optimal opacification of central pulmonary arteries. Pulmonary arteries: Pulmonary arteries are suboptimally opacified. Pulmonary arteries are normal in size. Lungs and pleura: There are peripheral nodular opacities in lingula. No pleural effusions or pneumothorax. Central and peripheral airways are patent. Mediastinum: Heart size is normal, without pericardial effusion. No mediastinal or hilar adenopathy. Thoracic aorta is normal in caliber and enhancement. Esophagus is normal in caliber. Small hiatal hernia. Bones and chest wall: No suspicious bony lesions. Ribs and thoracic spine appear intact throughout. Thyroid gland is atrophic. No axillary or supraclavicular adenopathy. Abdomen: Visualized upper abdominal solid organs appear normal in the early arterial phase of enhancement. Gallbladder is surgically absent. IMPRESSION: 1. Suboptimal opacification of central pulmonary arteries. Cannot rule out acute PE. Recommend repeat examination when clinically feasible if clinical suspicion is high. 2. Peripheral nodular opacities in lingula suspicious for pneumonia superimposed on atelectasis. Recommend follow up CT to resolution. 3. Atrophic thyroid gland. Please correlate with thyroid function tests. Dictated by: Gala Mac M.D. on 06/09/2020 at 19:56 Approved by: Gala Mac M.D. on 06/09/2020 at 20:03 ECG Data Attestation: I personally reviewed and interpreted this ECG as follows: Interpretation: Normal sinus rhythm rate [address] elevation or depression. Normal EKG MDM Narrative Medical decision making narrative: Appropriate for admission. Reviewed with neurosurgeon for clearance surgically. Cannot rule out PE. Will need V/Q scan in the morning Discharge Plan Departure Patient Disposition: Admitted as Observation Clinical Impression: Chest pain Qualifiers: Chest pain type: unspecified Qualified Code(s): R07.9 - Chest pain, unspecified Admit Date/Time: 06/09/20 20:45 Admit Provider: Romain Estrada
[2020-06-09] MEDS: SODIUM CHLORIDE 0.9% 500 ML 1000 ML IV (19:40)
[2020-06-09] MEDS: ENOXAPARIN 80 MG/0.8 ML SYRINGE SUBCUT (20:53)
[2020-06-09] MEDS: SODIUM CHLORIDE 0.9% 1,000 ML 75 ML IV (21:30)
--- NOTE | 2020-06-09 21:36 | DI.NM.S_ITS ---
PROCEDURE: NM PUL VENT AND PERFUSION RADIOPHARMACEUTICAL: Less than 4 mCi Tc-99m DTPA aerosol by inhalation and 9.8 mCi Tc-99m MAA intravenously. INDICATIONS: CT equivocal for PE TECHNIQUE: Ventilation images were obtained first with Tc-99m DTPA aerosol. Subsequently, perfusion images were acquired after intravenous injection of Tc-99m MAA. Anterior, posterior, CORDOVA, STEFFANIE, RPO, LPO, left and right lateral views were obtained. COMPARISON: [facility], CT, CT ANGIO CHEST PE PROTOCOL, 06/09/2020, 18:54. [facility], CR, XR CHEST 1V, 06/09/2020, 17:37. FINDINGS: The comparison chest x-ray dated 06/09/2020 demonstrates no pulmonary infiltrates or pleural effusions. Technetium 99 M DTPA aerosol images demonstrate mild central airway deposition of aerosol, otherwise physiological activity bilaterally. Perfusion images demonstrate no pleural based, segmental or subsegmental ventilation perfusion mismatches. Swallowed activity is noted in the esophagus and stomach. IMPRESSION: 1. Very low probability for pulmonary embolism. Dictated by: Gala Mac M.D. on 06/10/2020 at 14:38 Approved by: Gala Mac M.D. on 06/10/2020 at 14:41
[2020-06-09 22:32] LABS: COVID19 -Nasal RAPID Negative (Negative)
[2020-06-09 23:58] LABS: Procalcitonin < 0.05 ng/mL (<0.5)
[2020-06-10] MEDS: FAMOTIDINE 20 MG TABLET PO ×3 (00:18→19:39)
--- NOTE | 2020-06-10 01:25 | PM.HP.1 ---
History of Present Illness History of Present Illness Date Patient Seen: 06/09/20 Time Patient Seen: 22:15 Chief complaint: having spells of nausea, rt sided chest pain Narrative: Ms.Kerrylea Blevins is a 65-year-old female with a past medical history significant for dyskinesia, hypothyroidism, and osteoarthritis who presents to the ER sent by her primary care physician for complaints lightheadedness, weakness, night sweats and nausea. Upon arrival to the ER the patient's chief complaint is reported as right-sided chest pain that radiates into the neck and the face. She has 19 days postoperative anterior cervical diskectomy and fusion with lumbar foraminotomy completed by Dr. Lopez at [facility]. Since her surgery she reports chills and shakes and has a long history parkinsonian like tremors and dyskinesias that have been worse since surgery. The patient reports that she has not taken a pain pill in over a week and states that she has much greater motion in her neck and her back then she had preoperative. The patient describes upper chest pressure as a fullness with exertional dyspnea that is progressive with activity and relieved with rest and took Tylenol. She reports having longstanding history episodic diaphoresis pre dating her surgery for years. Since surgery the patient has had decreased mobility due to the a for mentioned chest pressure and dyspnea and no prior history of DVT or pulmonary emboli. She denies complaints of fevers, headaches or dizziness, she has had chest pain as noted above denies palpitations. She denies chest congestion or cough and has had no wheezing. She denies complaints of abdominal pain, no nausea vomiting and no diarrhea or constipation. She reports no urinary symptoms. Upon arrival the ER the patient is afebrile with temperature 97.2?, heart rate of 76, blood pressure 123/84, respirations of 28 saturating 98% on room air. Twelve lead EKG reveals sinus rhythm at a rate of 66 without ectopy or block, no ST or T-wave changes no evidence of infarct. Chest x-ray finds possible lung nodule versus artifact overlying the anterior 5th rib but no acute cardiopulmonary processes. A CT angio of the chest for PE finds some optimal opacification of the central pulmonary arteries, cannot rule out PE, peripheral nodular opacities suspicious for pneumonia. On laboratory analysis the patient has white count of 11.1 with elevated neutrophils at 7600. She has a hemoglobin of 12.6, hematocrit of 38.4 platelets 625. PT is 12.8 an INR 1.1 and PTT of 29. Her electrolytes are within normal limits and she has a BUN 24 and a creatinine of 0.82. Her nonfasting glucose is 101. Her liver functions within normal range she has lipase of 335. Her total CK is 28 and troponin is negative at less than 0.012. The patient is admitted to the hospitalist service for chest pain rule out pulmonary embolism. Patient History Medical History (Updated 06/10/20 @ 01:46 by ANI Knapp) Depression Hypothyroidism Osteoarthritis Surgical History (Updated 06/10/20 @ 01:46 by ANI Knapp) History of cervical spinal surgery History of cholecystectomy History of hysterectomy History of lumbar surgery Family & Social History Social History: household members spouse Prior Living Arrangements House Safety & Behavioral: Feels Safe in Current Yes Environment Been Physically Hurt or No Threatened By a Person Suicidal Ideation Description None Suicide Plan Description No Plan Tobacco & Substance use: Smoking Status Never smoker alcohol intake frequency holiday/special occasion Substance Use Type does not use Meds Home Medications and Allergies Home Medications Medication Instructions Recorded Confirmed Type levothyroxine 125 mcg capsule 125 mcg PO DAILY 03/20/18 06/09/20 History venlafaxine 75 mg capsule,extended 75 mg PO DAILY 03/20/18 06/09/20 History release 24 hr magnesium citrate 300 mg PO BID 06/09/20 06/09/20 History oxycodone 5 mg PO Q2HR 06/09/20 06/09/20 History Allergies Allergy/AdvReac Type Severity Reaction Status Date / Time Penicillins Allergy Verified 03/16/19 20:48 Sulfa (Sulfonamide Allergy Verified 03/16/19 20:48 Antibiotics) Review of Systems Review of Systems ROS: Yes All systems reviewed with the patient and are negative except as otherwise documented Exam Vital Signs (past 8 hours): - 06/09/20 18:21 06/09/20 18:30 06/09/20 19:00 Temperature Pulse Rate 70 67 69 Respiratory Rate 34 H 30 H Blood Pressure 117/56 L Pulse Oximetry 98 98 06/09/20 19:30 06/09/20 19:43 06/09/20 20:00 Temperature Pulse Rate 69 66 61 Respiratory Rate 24 Blood Pressure 160/67 H 132/64 Pulse Oximetry 79 L 95 97 06/09/20 20:30 06/09/20 21:00 06/09/20 21:01 Temperature Pulse Rate 63 67 67 Respiratory Rate 24 21 Blood Pressure 127/61 142/71 H Pulse Oximetry 99 99 99 06/09/20 21:30 06/09/20 23:58 Temperature 98.3 F 97.7 F Pulse Rate 74 82 Respiratory Rate 17 20 Blood Pressure 156/68 H 149/68 H Pulse Oximetry 96 96 Oxygen Delivery Method Room Air Oxygen Flow Rate 0 Narrative Exam Narrative: GENERAL APPEARANCE: well developed, overweight female sitting up in bed alert and responsive with dyskinesia but in no acute distress. HEENT: Normocephalic, PERRLA, conjunctiva clear, EOMs intact without nystagmus, mucous membranes are moist and pink without lesions or exudate. NECK/THYROID: Healing wound without signs of infection right anterior neck, nontender to palpation, limited ROM, no JVD,no thyromegaly, trachea midline. LYMPH NODES: no cervical or supraclavicular lymphadenopathy. SKIN: [place], warm and dry, no visible lesions, rashes, ulcerations or petechiae. HEART: regular rate and rhythm, S1-S2, no murmur, no rubs or gallops, brisk capillary refill, no edema LUNGS: clear to auscultation bilaterally, no coarseness crackles or wheezing, no cough present CHEST: Symmetrical movement, no accessory muscle use, good tidal volume. ABDOMEN: Soft, no distention, no abdominal tenderness, no guarding or peritoneal signs, no organomegaly, no flank or suprapubic tenderness, active bowel tones. BACK: Lumbar spine healing midline scar, decreased lumbar lordosis, mild tenderness on palpation without muscular spasms EXTREMITIES: Spastic/dystonic movements of all extremities, BUE strength is 4/5 and symmetrical, no clubbing or cyanosis, gait not observed. NEUROLOGIC: AAO x 3, dysphonia, dystonic movements and tremors, cranial nerves II-XII grossly intact, sensation intact to light touch, hearing grossly normal to speech. PSYCH: Good eye contact, cooperative, stable behavior. Objective Labs Result Diagrams: 06/09/20 17:23 06/09/20 17:23 Labs: Laboratory Results - last 24 hr 06/09/20 06/09/20 06/09/20 17:23 17:23 17:23 WBC 11.1 H RBC 4.36 Hgb 12.6 Hct 38.4 MCV 88.1 MCH 28.8 MCHC 32.7 RDW 13.8 Plt Count 625 H Neut % (Auto) 68.0 Lymph % (Auto) 24.2 L [place] % (Auto) 5.6 Eos % (Auto) 1.2 L Baso % (Auto) 1.0 Neut # (Auto) 7600 H Lymph # (Auto) 2700 [place] # (Auto) 600 Eos # (Auto) 100 Baso # (Auto) 100 PT 12.8 H INR 1.1 APTT 29 D-Dimer Sodium 135 L Potassium 4.5 Chloride 103 Carbon Dioxide 28 BUN 24 H Creatinine 0.82 Estimated GFR > 60.0 BUN/Creatinine Ratio 29.3 H Glucose 101 Calcium 9.3 Total Bilirubin 0.4 AST 26 ALT 20 Alkaline Phosphatase 177 H Total Creatine Kinase 28 L CK-MB (CK-2) TNP CK-MB (CK-2) Rel Index TNP Troponin I < 0.012 Total Protein 7.0 Albumin 4.0 Globulin 3.0 Albumin/Globulin Ratio 1.3 Lipase 335 H Procalcitonin Nasal Screen MRSA (PCR) SARS-CoV-2 (PCR) SARS-CoV-2 IgA Ab 06/09/20 06/09/20 06/09/20 17:23 21:50 21:50 WBC RBC Hgb Hct MCV MCH MCHC RDW Plt Count Neut % (Auto) Lymph % (Auto) [place] % (Auto) Eos % (Auto) Baso % (Auto) Neut # (Auto) Lymph # (Auto) [place] # (Auto) Eos # (Auto) Baso # (Auto) PT INR APTT D-Dimer 2755 H Sodium Potassium Chloride Carbon Dioxide BUN Creatinine Estimated GFR BUN/Creatinine Ratio Glucose Calcium Total Bilirubin AST ALT Alkaline Phosphatase Total Creatine Kinase CK-MB (CK-2) CK-MB (CK-2) Rel Index Troponin I Total Protein Albumin Globulin Albumin/Globulin Ratio Lipase Procalcitonin Nasal Screen MRSA (PCR) Negative for mrsa SARS-CoV-2 (PCR) SARS-CoV-2 IgA Ab Cancelled 06/09/20 06/09/20 22:00 23:20 WBC RBC Hgb Hct MCV MCH MCHC RDW Plt Count Neut % (Auto) Lymph % (Auto) [place] % (Auto) Eos % (Auto) Baso % (Auto) Neut # (Auto) Lymph # (Auto) [place] # (Auto) Eos # (Auto) Baso # (Auto) PT INR APTT D-Dimer Sodium Potassium Chloride Carbon Dioxide BUN Creatinine Estimated GFR BUN/Creatinine Ratio Glucose Calcium Total Bilirubin AST ALT Alkaline Phosphatase Total Creatine Kinase CK-MB (CK-2) CK-MB (CK-2) Rel Index Troponin I Total Protein Albumin Globulin Albumin/Globulin Ratio Lipase Procalcitonin < 0.05 Nasal Screen MRSA (PCR) SARS-CoV-2 (PCR) Negative SARS-CoV-2 IgA Ab Assessment & Plan Assessment & Plan narrative: This is a 65-year-old female patient who presents 19 days postoperative anterior surgical fusion and diskectomy as well as lumbar foraminotomy with decreased activity related to chest pressure and exertional dyspnea. 1. Chest pain, rule out pulmonary emboli, acute, present on admission, active. -right-sided chest pain with radiation into the neck with exertional dyspnea. -the patient is high risk for pulmonary embolus with decreased mobility following major surgery 19 days ago. -Wells PE score is 7.5. D-dimer is 2955, CTA PE protocol is inconclusive due to suboptimal opacification central pulmonary arteries. Cannot rule out PE per radiology read. -bilateral lower extremity ultrasound finds no DVT. -V/Q scan is ordered -ER physician spoke with patient's neurosurgeon dr Caldwell, who cleared the patient for anticoagulation. Ordered Lovenox 1 milligram/kilogram (80 mg) twice daily 1st dose given in the ER. 2. Recent cervical spinal fusion and lumbar foraminotomy, stable. -the patient has not had follow-up with her surgeon. Cervical and lumbar wounds appear clean without signs of infection redness swelling or tenderness. -will cuss physical for and occupational therapy to assess and treat -patient using cervical collar intermittently. -[facility] 3. Dyskinesia -the patient states she has had motor dysfunction for many years but has escalated over the last 5 years. 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 -the patient continues to follow at [facility] with movement disorder specialists. VTE prophylaxis: Therapeutic Lovenox 80 mg twice daily IV fluid: 75 cc/hour Diet: Heart healthy Code status: Full code, patient designates her to be her surrogate decision maker. The patient is admitted to the hospital due to the severity of her symptoms requiring further monitoring and evaluation to prevent complications or adverse events with a complex treatment plan. The patient is admitted as observation with expected length of stay to be less than 2 midnights. COVID-19 COVID-19 status: Negative Result date/Date tested (Pos, Neg/Pending): 06/09/20 Scores GCS Austin coma scale eye opening: Spontaneous Austin coma scale verbal response: Orientated Michael coma scale motor response: Obey commands Austin coma scale total score: 15 Wells' Criteria for PE Clinical signs and symptoms of DVT: No PE is #1 Dx or equally likely: Yes Heart rate > 100: No Immobilization at least 3 days or surg in previous 4 weeks: Yes History of PE or DVT: No Hemoptysis: No Malignancy w/Treatment within 6 months or palliative: No Wells' PE Score total: 4.5
[2020-06-10] MEDS: MELATONIN 3 MG TABLET 6 MG PO (02:46)
[2020-06-10] MEDS: LEVOTHYROXINE 50 MCG TABLET 125 MCG PO (06:41)
[2020-06-10 06:57] LABS: Add Manual Diff / Slide Review NO; Basophils Absolute Auto 100 /uL (0-100); Basophils Percent Auto 1.1 % (0-2); Eosinophils Absolute Auto 200 /uL (0-450); Eosinophils Percent Auto 2.8 % (2-4); Hematocrit 32.9 % (36-46); Lymphocytes Absolute Auto 2700 /uL (1100-4500); Mean Corpuscular HGB Conc 33.5 % (30-36); Mean Corpuscular Hemoglobin 29.5 PG (26-34); Mean Corpuscular Volume 87.9 fL (80-100); Monocytes Absolute Auto 500 /uL (0-900); Monocytes Percent Auto 5.6 % (3-14); Neutrophils Absolute Auto 4500 /uL (1500-7000); Neutrophils Percent Auto 56.5 % (50-75); Platelet Count 391 X10^3/uL (150-400); Red Blood Cell Count 3.74 X10^6/uL (4.0-5.2); Red Cell Distribution Width 13.8 % (11.6-14.8)
[2020-06-10 06:59] LABS: BUN Creatinine Ratio 27.3 (6-22); Blood Urea Nitrogen 24 mg/dL (7-17); Calcium 8.6 mg/dL (8.4-10.2); Carbon Dioxide 28 mmol/L (22-32); Chloride 103 mmol/L (98-107); Estimated Glomerular Filt Rate > 60.0 mL/min (>60); Glucose 124 mg/dL (80-110); HEMOLYSIS 18 (0-50); Magnesium 2.2 mg/dL (1.6-2.3); Sodium 134 mmol/L (137-145)
[2020-06-10 08:00] VITALS: BP 126/65; PULSE 73; RESP 20; TEMP 37.2; O2SAT 97
[2020-06-10] MEDS: ENOXAPARIN 80 MG/0.8 ML SYRINGE SUBCUT (08:35)
[2020-06-10] MEDS: VENLAFAXINE ER 75 MG CAP PO (08:35)
[2020-06-10] MEDS: DOCUSATE 100 MG CAPSULE PO (08:35)
[2020-06-10 09:08] VITALS: PULSE 79; RESP 16; O2SAT 98
--- NOTE | 2020-06-10 09:50 | OT.IP.EVAL ---
Past Medical History (Last Updated 06/10/20 @ 01:46 by ANI Knapp) Depression Hypothyroidism Osteoarthritis Surgical History (Last Updated 06/10/20 @ 01:46 by ANI Knapp) History of cervical spinal surgery History of cholecystectomy History of hysterectomy History of lumbar surgery Occupational Therapy Inpatient Evaluation/Re-Eval M1 PT/OT-IP Prior Functional Status Start: 06/10/20 11:54 Freq: NEEDED Status: Active Protocol: Document 06/10/20 11:54 [facility] (Rec: 06/10/20 12:19 [facility] [id number]) Medical Review Prior Functional Status Communication Independent however at times has word finding issues. Mobility and Gait Independent with no devices. Activities of Daily Living and IADL's Pt states independent with all ADL, and her assists with heavy IADl needs. Prior Functional Level (Other details) Pt is apprx 3 week out from postop anterior cervical diskectomy and fusion with lumbar foraminotomy and per pt states doctor wanting pt to wear the rigid neck collar at all times, however pt states recently got a rash on her neck from medications and that the surgeon told her to get a soft collar instead. Pt states has not gotten the soft collar yet and complaining of discomfort with the hard neck collar. Information passed to nursing. Social History Household Members spouse Living Arrangements House Number of Floors (Floors) Two Floors Number of Stairs To Enter/Railing? One 5.5 inch platform step with ability to hold to the gate/fence and then 25 ft and then another step to get into the house. Pt able to stay on the main level. Home Environment Standard Height Toilet,Walk in Shower Home Equipment Shower Seat with Backrest,Hand Held Shower,Rn Delivery M2 OT-IP Current Condition Start: 06/10/20 11:54 Freq: Status: Active Protocol: Document 06/10/20 11:54 [facility] (Rec: 06/10/20 12:19 [facility] [id number]) Occupational Therapy Current Condition Current Condition Evaluation Date 06/10/20 Treatment Diagnosis Chest pain, decreased activity tolerance Post Operative Precautions Cervical Spine Precautions Rigid Collar,No Heavy Lifting, Log Roll M3 OT- IP Subjective and Pain Start: 06/10/20 11:54 Freq: Status: Active Protocol: Document 06/10/20 11:54 [facility] (Rec: 06/10/20 12:19 [facility] [id number]) OT- Subjective Occupational Therapy Visit Type Type Initial Evaluation Visit Start Time 09:13 Visit Stop Time 09:50 Total Visit Minutes 37 Occupational Therapy Visit Comments Patient Comments Pt agreed to do OT eval. Patient/Caregiver Goals To go home. OT Pain Assessment Pain When Pain Assessed At Rest Pain Present Pain Present Pain Reported Location Neck Intensity 2 Scale Used Numeric (0 - 10) M4 OT- IP ADL's Start: 06/10/20 11:54 Freq: Status: Active Protocol: Document 06/10/20 11:54 [facility] (Rec: 06/10/20 12:19 [facility] [id number]) OT [id number] Comments OT Self-Feeding Comments Pt states did not have any issues for swallowing. OT ADL-Grooming General Evaluation Grooming Ability Independent Areas Needing Assistance Retrieving/Set-up of Grooming Items OT ADL-Oral Care General Eval Oral Care Ability Independent Comments Oral Care Comments VC to spit into a cup. OT ADL-Dressing General Eval Lower Body Dressing Ability Standby Assistance Comments OT Dressing Comments Pt able to comfortable cross her legs over to sharon/doff her socks. OT ADL-Toileting Comments OT Toileting Comments Pt not having to go. OT ADL-Bathing Comments OT Bathing Comments NOt performed. M5 OT- IP IADL's Start: 06/10/20 11:54 Freq: Status: Active Protocol: Document 06/10/20 11:54 [facility] (Rec: 06/10/20 12:19 [facility] [id number]) OT-Instrumental Activities of Daily Living Home Safety Awareness Awareness of Need for Assistance at Home Good Awareness Ability to Problem Solve Emergency Able to Problem Solve Situations Senior Quality Methods Specialist Senior Quality Methods Specialist Caregiver Provides Assist Driving Driving Caregiver Provides Assist M6 OT- IP Functional Cognition Start: 06/10/20 11:54 Freq: Status: Active Protocol: Document 06/10/20 11:54 [facility] (Rec: 06/10/20 12:19 [facility] [id number]) Cognitive Factors Limiting Selfcare Function Cognitive Ability Level of Alertness Alert Patient Orientation Name,Age,Birthday,Month,Date, Year,Day of Week,Place, Situation Attention Span Ability Capable of Focused Attention, Capable of Sustained Attention Ability to Follow Commands Able to Follow One Step Commands Safety Awareness Decreased Ability to Apply Precautions,Underestimates Need for Assistance Problem Solving Ability Needs Assist to Identify Solutions Cognitive Comments Cognitive Assessment Comments Pt needing reminder to do log rolling. Pt has word finding difficulties at times. OT- Vision and Hearing OT- Hearing Assessment OT- Hearing Assessment WFL OT- Vision Assessment Visual Acuity Glasses All The Time M7 OT- IP Mobility and Balance Start: 06/10/20 11:54 Freq: Status: Active Protocol: Document 06/10/20 11:54 [facility] (Rec: 06/10/20 12:19 [facility] [id number]) OT- Bed Mobility Assessment Rolling Type of Rolling Roll to Left Level of Assistance Standby Assistance Supine to Sit Supine to Sit Assist Standby Assistance Sit to Supine Sit to Supine Assist Standby Assistance Scooting Scooting to Edge of Bed Standby Assistance OT-Transfer Assessment Sit to and From Stand Sit to and from Stand Standby Assistance Transfers Transfer Ability Standby Assistance Technique Transfer Destination Bed Devices Transfer Assistive Devices None,Gait Belt Comments Mobility Comments SBA for bed mobility and able to walk to the sink and back with SBA. Pt states feeling tired while at the sink and had to get back to the bed. OT- Balance Assessment Sitting Balance and Reactions Static Sitting Balance Ability Normal Dynamic Sitting Balance Ability Normal Standing Balance and Reactions Static Standing Balance Ability Good M8 OT- IP Objective Assessments Start: 06/10/20 11:54 Freq: Status: Active Protocol: Document 06/10/20 11:54 [facility] (Rec: 06/10/20 12:19 [facility] [id number]) OT-Muscle Tone Assessment Muscle Tone WNL Yes M9 OT- IP Assessment and Plan Start: 06/10/20 11:54 Freq: Status: Active Protocol: Document 06/10/20 11:54 [facility] (Rec: 06/10/20 12:19 [facility] [id number]) OT Summary Assessment and Plan Potential Rehabilitation Potential Good Analytic Complexity at Evaluation Low Summary OT Impairments Functional Cognition, Functional Mobility,Dressing, Toileting,Bathing,Activity Tolerance Progress Towards Goals Slow Progress due to Medical Issues,Slow Progress due to Activity Tolerance Assessment Summary Pt low complexity and here for chest pain and possible PE or PNA. Pt's main barriers are decreased activity tolerance. Pt has a supportive that is able to assist at home . Pt about 3 week out from postop anterior cervical diskectomy and fusion with lumbar foraminotomy and per pt states doctor wanting to wear the rigid neck collar at all times, however pt states recently got a rash on her neck from medications and that the surgeon told her to get a soft collar instead. Pt states has not gotten the soft collar yet and complaining of discomfort with the rigid neck collar. Recommend pt to go home with assist when medically stable. Goals Self-Feeding Goal Independent Grooming Goal Independent Dressing Goal Independent Toileting Goal Independent Bathing Goal Independent Toilet Transfer Goal Independent Shower Transfer Goal Independent Patient/Caregiver Education Goal Demonstrate Energy Conservation and Pacing Days to Meet Goals 7 Frequency of Treatment Frequency Of Treatment Once a Day Treatment Plan OT Treatment Plan ADL Training,Functional Cognition Training,Functional Mobility,Patient/Family Education,Discharge Planning Other Treatment Recommendations and Next Shower Treatment Focus Discharge Recommendations OT Discharge Recommendations Home with Assistance Transportation Needs at Discharge Private Vehicle
[2020-06-10] MEDS: ACETAMINOPHEN 325 MG TABLET 650 MG PO (11:33)
[2020-06-10 12:00] VITALS: BP 126/74; PULSE 72; RESP 18; O2SAT 98
--- NOTE | 2020-06-10 12:22 | PT.IIE ---
Surgical History (Last Updated 06/10/20 @ 01:46 by ANI Knapp) History of cervical spinal surgery History of cholecystectomy History of hysterectomy History of lumbar surgery Medical History (Last Updated 06/10/20 @ 01:46 by ANI Knapp) Depression Hypothyroidism Osteoarthritis Physical Therapy Inpatient Evaluation/Re-Eval M1 PT/OT-IP Prior Functional Status Start: 06/10/20 11:54 Freq: NEEDED Status: Active Protocol: Document 06/10/20 11:54 [facility] (Rec: 06/10/20 12:19 [facility] [id number]) Medical Review Prior Functional Status Communication Independent however at times has word finding issues. Mobility and Gait Independent with no devices. Activities of Daily Living and IADL's Pt states independent with all ADL, and her assists with heavy IADl needs. Prior Functional Level (Other details) Pt is apprx 3 week out from postop anterior cervical diskectomy and fusion with lumbar foraminotomy and per pt states doctor wanting to wear the rigid neck collar at all times, howevr pt states recently got a rash on her neck from medicaitons and that the surgeon told her to get a soft collar instead. Pt states has not gotten the soft collar yet and complaining of discomfort with the hard neck collar. Information passed to nursing. Social History Household Members spouse Living Arrangements House Number of Floors (Floors) Two Floors Number of Stairs To Enter/Railing? One 5.5 inch platform step with ability to hold to the gate/fence and then 25 ft and then another step to get into the house. Pt able to stay on the main level. Home Environment Standard Height Toilet,Walk in Shower Home Equipment Shower Seat with Backrest,Hand Held Shower,Chemical Processing Equipment Repairer M2 PT-IP Current Condition Start: 06/10/20 11:37 Freq: NEEDED Status: Active Protocol: Document 06/10/20 13:17 (Rec: 06/10/20 13:29 [email or web address]) Physical Therapy Current Condition Current Condition Evaluation Date 06/10/20 Treatment Diagnosis chest discomfort, exertional dyspnea Onset Date few days ago Precautions Cervical Spine Precautions Soft Collar for Comfort,Rigid Collar,No Heavy Lifting,Log Roll Lumbar Precautions Log Roll,No Twisting,Limit Bending,Lifting Restriction of 10 lbs,Gait Belt above Incisional Area Weight Bearing Status Weight Bearing Status Full Weight Bearing M3 PT-IP Subjective Start: 06/10/20 11:37 Freq: NEEDED Status: Active Protocol: Document 06/10/20 13:17 [facility] (Rec: 06/10/20 13:29 [email or web address]) Subjective Physical Therapy Visit Type Type Initial Evaluation Visit Start Time 12:01 Visit Stop Time 12:22 Total Visit Minutes 21 Number of CRACKER DOUGH MIXER Visits 0 Physical Therapy Visit Comments Patient Comments Im doing pretty and i just get tired easily. Patient Goals to regain her strength and endurance Therapy Pain Assessment Pain Present Pain Present Denied Pain M4 PT-IP Mobility and Gait Start: 06/10/20 11:37 Freq: NEEDED Status: Active Protocol: Document 06/10/20 13:17 [facility] (Rec: 06/10/20 13:29 [email or web address]) PT-Bed Mobility Assessment Supine to Sit Supine to Sit Head of Bed Elevated Scooting Scooting to Edge of Bed Standby Assistance PT-Transfer Assessment Sit to and From Stand Sit to and from Stand Standby Assistance Equipment Transfer Assistive Device None Orthotic/Prosthetic Devices or Brace: No Transfers Transfer Destination Bed,Chair Transfer Technique Stand Step Pivot Transfer Ability Level of Assist Standby Assistance Comments Mobility Comments pt was in elevated bed upon PT arrival. AxOx4 and noticed pt has resting tremor trunk > UE > LE. GIO at 128/69 HR 80. Denies any discomfort. She was able to recall 2/3 post precautions. Pt then sat up from elevated HOB followed seated pivoting towards L EOB while maintaining precautions. She sharon her cervical rigid collar independently then she stood up without assistance. Pt then amb with this PT SBA out in hallway. She competed 2 laps of [employer] without any resting breaks. And tele shows HR maintained at 80s. Pt denies any discomfort but did c/o increase in fatigue at the end . Pt then walked back to her room and sat in chair comfortably with legs elevated . BP at 126/74 HR 81 Gait Assessment Gait Gait Assistance Required: Standby Assistance Distance (Feet) 280 Able to Maintain Weight Bearing Status Yes During Gait Assistive Devices Assistive Device None Orthotic/Prosthetic Devices or Brace: No Gait Deviations General Gait Pattern Within Normal Limits Factors Limiting Gait Function Factors Limiting Gait Function Decreased Activity Tolerance, Decreased Strength,Poor Balance,Respiratory Distress Comments Gait Comments see mobility comments. Stair Climbing Assessment Comments Stair Climbing Comments have not assessed yet. PT-Balance Assessment Sitting Balance and Reactions Static Sitting Balance Ability Normal Dynamic Sitting Balance Ability Normal Standing Balance and Reactions Static Standing Balance Ability Good Dynamic Standing Balance Ability Good Device Used none M5 PT-IP Objective Assessments Start: 06/10/20 11:37 Freq: NEEDED Status: Active Protocol: Document 06/10/20 13:17 (Rec: 06/10/20 13:29 [email or web address]) Orientation Orientation/Cognition Level of Alertness Alert Orientation Name,Age,Birthday,Month,Date, Year,Day of Week,Place, Situation Language Function Ability No Deficits Noted Safety Awareness Understands Safety Issues Memory Description No Deficits Noted Gross Range of Motion Upper Extremity ROM Assessment Within Functional Limits Lower Extremity ROM Assessment Within Functional Limits Strength Upper Extremity Strength Shoulder 4/5 Elbow 4/5 Wrist 4/5 Hand 4/5 Lower Extremity Strength Hip 4+/5 Knee 4+/5 Coordination Assessment Gross Coordination Gross Coordination WNL Assessment Finger to Nose Test Normal Performance Pronation/Supination Test Normal Performance Sensation Assessment Sensation Gross Sensation WNL M7 PT-IP Assessment and Plan Start: 06/10/20 11:37 Freq: NEEDED Status: Active Protocol: Document 06/10/20 13:17 (Rec: 06/10/20 13:29 [email or web address]) PT Summary Assessment and Plan Potential Rehabilitation Potential Excellent Status of Condition at Evaluation Stable Summary Impairments Strength,Balance,Tone,Bed Mobility,Transfers,Gait, Activity Tolerance Assessment Summary This is a 65 yo female admitted to d/t increase chest pressure and exertional dyspnea. Pt was ruled for DVT but will have further screenings to rule out possible PE. Pt has resting tremors and dyskinesia at baseline but was never diagnosed. She was basically independently for all ADLs and IADLs with to assist in lifting after her recent ACDF and lumbar foraminotomy. Upon assessment, BP and HR were stable during mobility but she did c/o fatigue [facility] But she was safe and no signs of LOB. Expect pt to be d/c home with hsuband's assistance once shes medically stable. Goals Bed Mobility Goal Independent Transfer Goal Independent Gait Goal Independent Gait Distance 500 Other Goals 1PF step without support Days to Meet Goals 3 Frequency of Treatment Frequency Of Treatment Once a Day Treatment Plan Physical Therapy Treatment Plan Bed Mobility Training,Transfer Training,Gait Training, Therapeutic Exercise,Balance Retraining,Post Op Education, Discharge Planning,Hot or Cold Pack,Neuromuscular Re-ed Other Recommendations and Next Treatment review postop precautions Focus monitor HR and RR mobility as denisse without AD, 1 PF step Recommendations To Nursing Amount of Assist Needed Standby Assistance Discharge Recommendations PT Discharge Recommendations Home with Assistance Transportation Needs at Discharge Private Vehicle
--- NOTE | 2020-06-10 13:52 | CM.IDA ---
Initial DCP Assessment Note Pt is a 65 yo female, resident of [place], patient arrives w/spells of nausea and rt sided chest pain, Dr Brar has ordered a particular scan- the V/Q lung scan to r/o PE (CT was unable to r/o PE) PCP: PCP not Listed Payer: [facility]/[employer] Reviewed chart, Dr Brar indicates patient may be able to return home this evening pending results from lung scan. Met w/patient to introduce role and review DCP. Patient is approx 3 weeks s/p anterior cervical diskectomy and fusion with lumbar foraminotomy. Hard neck collar on According to patient, recovery from surgery has been going well, w/spouse assist at home. patient states most challenging aspect of recovery is her decreased activity tolerance. 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 Therapy has cleared patient for return home w/spouse. No needs expected from DC planning team although will remain available in case this changes today. BUTCH Fung Discharge Planning/Care Management CM Discharge Assessment Start: 06/10/20 13:50 Freq: Status: Active Protocol: Document 06/10/20 13:50 [facility] (Rec: 06/10/20 13:52 [facility] [id number]) Discharge Planning Assessment Assigned Welder Explosion BUTCH More DPOA/Assigned Designee Name Danielito Blevins, spouse Contact Information [phone] Advance Directives? No History Provided By Patient,Medical Record Prior Living Arrangements House Household Members spouse Independent with ADL's Yes: At baseline. Is patient alert and oriented? Yes Barriers to Discharge No Discharge Plan Home Transportation Arrangement Family Referrals Initiated None needed Additional Comment At this time
[2020-06-10 15:57] VITALS: BP 147/69; PULSE 67; RESP 18; TEMP 37.2; O2SAT 97
[2020-06-10 18:47] LABS: Creatine Kinase 23 U/L (30-135)
[2020-06-10 19:00] LABS: Troponin I < 0.012 ng/mL (0.01-0.034)
--- NOTE | 2020-06-10 19:36 | PM.DS.1 ---
History of Present Illness History of Present Illness Chief complaint: having spells of nausea, rt sided chest pain Narrative: Ms.Kerrylea Blevins is a 65-year-old female with a past medical history significant for dyskinesia, hypothyroidism, and osteoarthritis who presents to the ER sent by her primary care physician for complaints lightheadedness, weakness, night sweats and nausea. Upon arrival to the ER the patient's chief complaint is reported as right-sided chest pain that radiates into the neck and the face. She has 19 days postoperative anterior cervical diskectomy and fusion with lumbar foraminotomy completed by Dr. Lopez at [facility]. Since her surgery she reports chills and shakes and has a long history parkinsonian like tremors and dyskinesias that have been worse since surgery. The patient reports that she has not taken a pain pill in over a week and states that she has much greater motion in her neck and her back then she had preoperative. The patient describes upper chest pressure as a fullness with exertional dyspnea that is progressive with activity and relieved with rest and took Tylenol. She reports having longstanding history episodic diaphoresis pre dating her surgery for years. Since surgery the patient has had decreased mobility due to the a for mentioned chest pressure and dyspnea and no prior history of DVT or pulmonary emboli. She denies complaints of fevers, headaches or dizziness, she has had chest pain as noted above denies palpitations. She denies chest congestion or cough and has had no wheezing. She denies complaints of abdominal pain, no nausea vomiting and no diarrhea or constipation. She reports no urinary symptoms. Upon arrival the ER the patient is afebrile with temperature 97.2?, heart rate of 76, blood pressure 123/84, respirations of 28 saturating 98% on room air. Twelve lead EKG reveals sinus rhythm at a rate of 66 without ectopy or block, no ST or T-wave changes no evidence of infarct. Chest x-ray finds possible lung nodule versus artifact overlying the anterior 5th rib but no acute cardiopulmonary processes. A CT angio of the chest for PE finds some optimal opacification of the central pulmonary arteries, cannot rule out PE, peripheral nodular opacities suspicious for pneumonia. On laboratory analysis the patient has white count of 11.1 with elevated neutrophils at 7600. She has a hemoglobin of 12.6, hematocrit of 38.4 platelets 625. PT is 12.8 an INR 1.1 and PTT of 29. Her electrolytes are within normal limits and she has a BUN 24 and a creatinine of 0.82. Her nonfasting glucose is 101. Her liver functions within normal range she has lipase of 335. Her total CK is 28 and troponin is negative at less than 0.012. The patient is admitted to the hospitalist service for chest pain rule out pulmonary embolism. Discharge Providers Provider Date of admission: 06/09/20 20:45 Discharge Date: 06/10/20 Primary care physician: Doctor Zulema MD Consults: 06/09/20 21:34 Consult to Discharge Planning Routine Comment: Consult to Occupational Therapy Evaluate & Treat Comment: Three-week postop cervical fusion, lumbar foramino Physician Instructions: Evaluate and treat Consult to Physical Therapy Evaluate & Treat Comment: Three-week postop cervical fusion, lumbar foramino Physician Instructions: Evaluate and Treat 06/09/20 21:36 Consult to Respiratory Therapy Evaluate & Treat Comment: Physician Instructions: Evaluate and treat 06/09/20 21:43 Consult to Pastoral Services Routine Comment: support Discharge provider: ANI Knapp Summary Hospital Course Hospital Course: This is a 65-year-old female patient who presents to the hospital with complaints of lightheadedness, weakness, night sweats and nausea with non pleuritic non reproducible right-sided chest pain that radiates into the neck and the face. During the patient's hospital stay she remains chest pain-free and denies shortness of breath nausea lightheadedness or weakness. Vital signs have remained stable. The initial CT scan was equivocal for PE and the patient underwent V/Q scan today with finding a very low probability for PE. Patient had a negative troponin on initial evaluation and follow-up troponin this evening is less than 0.012. Due to the complaint of chest pain a stress test is recommended however the patient declines and states her desire to go home. The patient does not have an established primary care physician and continues to follow-up with [facility] for her movement disorder and with [facility] where she had her cervical and lumbar spine procedures. Recommended the patient establish primary care locally. Instructed the patient that should the chest pain, shortness of breath nausea or other concerning symptoms recur to return to the ER for re-evaluation. Exam Vital Signs (past 8 hours): - 06/10/20 12:00 06/10/20 15:57 Temperature 98.9 F Pulse Rate 72 67 Respiratory Rate 18 18 Blood Pressure 126/74 147/69 H Pulse Oximetry 98 97 Oxygen Delivery Method Room Air Oxygen Flow Rate 0 Narrative Exam Narrative: GENERAL APPEARANCE: alert and briskly interactive with dyskinesia but in no acute distress. HEENT: Normocephalic, PERRLA SKIN: [place], warm and dry, surgical incisions healing cleanly without infection swelling or redness.. HEART: regular rate and rhythm, S1-S2, no murmur, no rubs or gallops, brisk capillary refill, no edema CHEST: Symmetrical movement, breathing nonlabored, no accessory muscle use, good tidal volume. ABDOMEN: Soft, nontender. EXTREMITIES: Spastic/dystonic movements of all extremities NEUROLOGIC: AAO x 3, spastic dysphonia, dystonic movements and tremors. PSYCH: Good eye contact, cooperative, stable behavior. Objective Labs Result Diagrams: 06/10/20 06:30 06/10/20 06:30 Labs: Laboratory Results - last 24 hr 06/09/20 06/09/20 06/09/20 21:50 21:50 22:00 WBC RBC Hgb Hct MCV MCH MCHC RDW Plt Count Neut % (Auto) Lymph % (Auto) [place] % (Auto) Eos % (Auto) Baso % (Auto) Neut # (Auto) Lymph # (Auto) [place] # (Auto) Eos # (Auto) Baso # (Auto) Sodium Potassium Chloride Carbon Dioxide BUN Creatinine Estimated GFR BUN/Creatinine Ratio Glucose Calcium Magnesium Total Creatine Kinase CK-MB (CK-2) CK-MB (CK-2) Rel Index Troponin I Procalcitonin Nasal Screen MRSA (PCR) Negative for mrsa SARS-CoV-2 (PCR) Negative SARS-CoV-2 IgA Ab Cancelled 06/09/20 06/10/20 06/10/20 23:20 06:30 06:30 WBC 8.0 RBC 3.74 L Hgb 11.0 L Hct 32.9 L MCV 87.9 MCH 29.5 MCHC 33.5 RDW 13.8 Plt Count 391 Neut % (Auto) 56.5 Lymph % (Auto) 34.0 [place] % (Auto) 5.6 Eos % (Auto) 2.8 Baso % (Auto) 1.1 Neut # (Auto) 4500 Lymph # (Auto) 2700 [place] # (Auto) 500 Eos # (Auto) 200 Baso # (Auto) 100 Sodium 134 L Potassium 4.0 Chloride 103 Carbon Dioxide 28 BUN 24 H Creatinine 0.88 Estimated GFR > 60.0 BUN/Creatinine Ratio 27.3 H Glucose 124 H Calcium 8.6 Magnesium 2.2 Total Creatine Kinase CK-MB (CK-2) CK-MB (CK-2) Rel Index Troponin I Procalcitonin < 0.05 Nasal Screen MRSA (PCR) SARS-CoV-2 (PCR) SARS-CoV-2 IgA Ab 06/10/20 18:00 WBC RBC Hgb Hct MCV MCH MCHC RDW Plt Count Neut % (Auto) Lymph % (Auto) [place] % (Auto) Eos % (Auto) Baso % (Auto) Neut # (Auto) Lymph # (Auto) [place] # (Auto) Eos # (Auto) Baso # (Auto) Sodium Potassium Chloride Carbon Dioxide BUN Creatinine Estimated GFR BUN/Creatinine Ratio Glucose Calcium Magnesium Total Creatine Kinase 23 L CK-MB (CK-2) TNP CK-MB (CK-2) Rel Index TNP Troponin I < 0.012 Procalcitonin Nasal Screen MRSA (PCR) SARS-CoV-2 (PCR) SARS-CoV-2 IgA Ab REPLACED BY [facility] Medical History Depression Hypothyroidism Osteoarthritis Surgical History History of cervical spinal surgery History of cholecystectomy History of hysterectomy History of lumbar surgery Social History household members: spouse Smoking Status: Never smoker Discharge Assessment & Plan Assessment and Plan Assessment: 1. Chest pain 2. Recent cervical diskectomy and fusion, multilevel lumbar laminectomy. 3. Dyskinesia Plan of Treatment: 1. Chest pain, rule out pulmonary emboli, acute, present on admission, active. -right-sided chest pain with radiation into the neck with exertional dyspnea. -the patient is high risk for pulmonary embolus with decreased mobility following major surgery 19 days ago. -Wells PE score is 7.5. D-dimer is 2955, CTA PE protocol is inconclusive due to suboptimal opacification central pulmonary arteries. Cannot rule out PE per radiology read. -bilateral lower extremity ultrasound finds no DVT. -ER physician spoke with patient's neurosurgeon dr Caldwell, who cleared the patient for anticoagulation. Ordered Lovenox 1 milligram/kilogram (80 mg) twice daily 1st dose given in the ER. -V/Q scan is completed finding very low probability for PE. Troponin is negative and EKG non concerning. -pulmonary embolism is ruled out and anticoagulation is discontinued. -patient started famotidine to rule out reflux with a family history of hiatal hernias and GERD. Will continue famotidine 20 mg twice daily as needed for GI protection. -patient has had no recurrence of chest pain during hospital stay. 2. Recent cervical spinal fusion and lumbar foraminotomy, stable. -the patient has not had follow-up with her surgeon. Cervical and lumbar wounds appear clean without signs of infection redness swelling or tenderness. -will cuss physical for and occupational therapy to assess and treat -patient using cervical collar intermittently. 3. Dyskinesia -the patient states she has had motor dysfunction for many years but has escalated over the last 5 years. 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 -the patient continues to follow at [facility] with movement disorder specialists. Discharge Plan Discharge Plan Patient Disposition: Home Provider Discharge Comment: Establish a local primary care provider for follow-up and general care. Return to the ER for chest pain shortness of breath nausea or other concerning symptoms. Discharge orders & Medications Prescriptions: New famotidine 20 mg tablet 20 mg PO BID MDD 40 mg Qty: 60 RF: 0 Continued venlafaxine 75 mg capsule,extended release 24hr 75 mg PO DAILY RF: 0 levothyroxine 125 mcg capsule 125 mcg PO DAILY RF: 0 magnesium citrate 300 mg PO BID RF: 0 oxycodone 5 mg Capsule 5 mg PO Q2HR RF: 0 Follow up/Referrals: Doctor Poole MD [Primary Care Provider] - Diet/Activity/Treatments Diet: Diet as Tolerated Diet comment: Heart healthy Activity: As tolerated Other treatments: Cervical collar per neurosurgeon direction Discharge Data Primary Care Provider: Doctor Zulema Attending Provider: Romain Estrada
--- NOTE | 2020-06-10 19:39 | PC.NURSE ---
Pt discharged per WC, all belongings with patient. Discharge instructions given to patient.
--- NOTE | 2020-06-15 15:15 | PC.NURSE ---
Late Entry: NS infusion initiated 2/3 at 21:30, stopped per discharge order at 17:39.
== END 2020-06-10 19:41 | disposition home or self-care (01) ==
LOC: ED 18:19 → AC 20:45 → ICU 21:26
PROVIDERS: Emergency Medicine; Internal Medicine; Admitting Provider Nurse Practitioner Adult Health; Emergency Provider Emergency Medicine; Referring Provider Emergency Medicine; Visit Provider Nurse Practitioner Adult Health
DX: R07.9 Chest pain, unspecified (principal); G24.9 Dystonia, unspecified; Z98.1 Arthrodesis status; M19.90 Unspecified osteoarthritis, unspecified site; F32.9 Major depressive disorder, single episode, unspecified; E03.9 Hypothyroidism, unspecified; Z20.822 Contact with and (suspected) exposure to COVID-19
CPT/HCPCS: 36415; 71045; 71275; 78582; 80048; 80053; 82550; 83690; 83735; 84145; 84484; 85025; 85379; 85610; 85730; 87635; 87797; 93005; 94762; 96360; 96361; 96372; 97161; 97165; 97530; 99284; A9539; A9540; C9803; G0378; A9270; J1650; Q9967

== ENCOUNTER → 2020-07-14 18:57 | Outpatient (ROUT) | payer MEDICARE, SELFPAY ==
[2020-06-09 21:15] VITALS: BMI 32.4
[2020-07-14 19:14] LABS: Alanine Aminotransferase 17 IU/L (<35); Albumin 4.2 g/dL (3.5-5.0); Albumin Globulin Ratio 1.8 (1.0-2.8); Alkaline Phosphatase 104 U/L (38-126); Aspartate Aminotransferase 26 IU/L (14-36); BUN Creatinine Ratio 27.8 (6-22); Bilirubin Total 0.2 mg/dL (0.2-1.3); Blood Urea Nitrogen 22 mg/dL (7-17); Calcium 9.7 mg/dL (8.4-10.2); Carbon Dioxide 30 mmol/L (22-32); Chloride 102 mmol/L (98-107); Estimated Glomerular Filt Rate > 60.0 mL/min (>60); Globulin 2.4 g/dL (1.7-4.1); Glucose 104 mg/dL (80-110); HEMOLYSIS < 15 (0-50); Potassium 4.5 mmol/L (3.4-5.1); Sodium 137 mmol/L (137-145); Total Protein 6.6 g/dL (6.3-8.2)
[2020-07-14 19:45] LABS: TSH w/ Reflex to FT4 0.21 uIU/mL (0.47-4.68)
[2020-07-14 20:11] LABS: Free T4, Direct Thyroxine 2.12 ng/dL (0.78-2.19)
== END ==
PROVIDERS: Visit Provider Internal Medicine
DX: E03.9 Hypothyroidism, unspecified (principal); R11.0 Nausea
CPT/HCPCS: 80053; 84439; 84443

== ENCOUNTER → 2024-11-18 16:29 | Outpatient (CLI) | payer MEDICARE, SELFPAY ==
[2020-06-09 21:15] VITALS: BMI 32.4
[2024-11-18 17:51] LABS: Alanine Aminotransferase 18 IU/L (<35); Albumin 4.4 g/dL (3.5-5.0); Albumin Globulin Ratio 1.7 (1.0-2.8); Alkaline Phosphatase 74 U/L (38-126); Blood Urea Nitrogen 28 mg/dL (7-17); Calcium 9.1 mg/dL (8.4-10.2); Carbon Dioxide 27 mmol/L (22-32); Chloride 100 mmol/L (98-107); Estimated Glomerular Filt Rate > 60 mL/min (>60); Globulin 2.6 g/dL (1.7-4.1); Glucose 90 mg/dL (70-99); HEMOLYSIS < 15 (0-50); Potassium 4.3 mmol/L (3.4-5.1); Sodium 133 mmol/L (137-145); Total Protein 7.0 g/dL (6.3-8.2)
== END ==
PROVIDERS: Referring Provider Orthopaedic Surgery; Visit Provider Orthopaedic Surgery
DX: E11.9 Type 2 diabetes mellitus without complications (principal)
CPT/HCPCS: 36415; 80053